=== PATIENT | male | born 2000 | race Caucasian/White ===

== ENCOUNTER 2019-04-13 20:29 | Inpatient (IN) | payer BC ==
[~2019-04-13 20:29] MED LIST: Iopamidol 370 76% 100 ML VIAL ONE; Ketamine 50 MG/ML (10ML VIAL) ONE; Sodium Bicarb 50 MEQ/50 ML Abboject 8.4% SYRINGE ONE
[2019-04-13] MEDS ORDERED: Fentanyl 100 MCG/2 ML VIAL ONE (20:39)
[2019-04-13] MEDS ORDERED: Tranexamic Acid 1,000 MG in Sodium Chloride 0.9% 100 ML IVPB SCH (20:45)
--- NOTE | 2019-04-13 21:01 | RAD ---
Chest one view: HISTORY: Injury from trauma Endotracheal tube in satisfactory location. Left subclavian catheter in place with the tip in the sup erior vena cava. Heart size is normal. No pneumothorax or pleural effusion or other acute process. IMPRESSION: Left subclavian catheter and endotracheal tubes in satisfactory location. No evidence for acute intra thoracic disease.
--- NOTE | 2019-04-13 21:03 | RAD ---
Exam: Pelvis one view: HISTORY: Injury from trauma, fall from bridge Overlying trauma board artifact. The patient is rotated to the right. The right pelvis and right sacr al alar region are less than optimally imaged. No acute fracture or dislocation seen on this somewhat limited study. IMPRESSION: Rotation to the right. No overt acute process.
[2019-04-13 21:04] LABS: INR-International Normal Ratio 1.8; PTT 57.5 SEC (22.9-36.1); Prothrombin Time 20.4 SEC (12.0-14.7)
[2019-04-13 21:12] LABS: Band 15 % (5-11); Eosinophils 1 % (0-10); Hemoglobin 13.1 g/dL (14.0-18.0); Lymphocytes 9 % (28-48); MDiff Complete? YES; Mean Corpuscular HGB CONC 34.4 g/dL (32.0-36.0); Mean Corpuscular Hemoglobin 32.3 pg (25.0-35.0); Monocytes 3 % (0-4); Neutrophil 71 % (31-61); Platelet Count 236 thou/uL (130-400); Platelet Morphology Comment Appears Adequate; RBC Distribution Width 11.1 % (11.5-14.5); Reactive Lymphocytes 1 % (0-10); Red Blood Cell (RBC) Count 4.05 mill/uL (4.00-5.20)
[2019-04-13 21:16] LABS: ALT (SGPT) 37 U/L (8-55); AST (SGOT) 56 U/L (10-45); Albumin 4.4 g/dL (3.5-5.0); Alkaline Phosphatase 71 U/L (Less than 750); Anion Gap 17 mmol/L (10-20); BUN (Urea Nitrogen) 16 mg/dL (8.4-21.0); Bilirubin, Total 0.5 mg/dL (0.2-1.2); Calc. Creatinine Clearance 0 mL/min (70-130); Calcium 8.8 mg/dL (7.8-10.44); Carbon Dioxide 18 mmol/L (22-29); Chloride 104 mmol/L (98-107); Estimated GFR-MDRD 68; Globulin 2.4 g/dL (2.4-3.5); Glucose 181 mg/dL (70-105); Potassium 3.5 mmol/L (3.5-5.1); Protein, Total 6.8 g/dL (6.0-8.3)
[2019-04-13 21:19] LABS: Sodium 135 mmol/L (136-145)
--- NOTE | 2019-04-13 21:31 | CT ---
Exam: Brain CT without IV contrast: HISTORY: There is some soft tissue air noted in the right upper neck. There is injury to the inferior anterior maxilla incompletely seen on this study but will be evaluated on the facial bone CT. Minimal sinus mucosal disease. The mastoids are clear. No focal mass or midline shift. No intra or extra-axial hemo rrhage.. Frontal scalp hematoma changes. IMPRESSION: No significant acute intracranial mass or hemorrhage. Soft tissue air in the right upper neck. Injury to the anterior maxilla incompletely seen on this study.
[2019-04-13] MEDS ORDERED: Propofol 1,000 MG/100 ML VIAL IV ONE (21:34)
[2019-04-13 21:39] LABS: Actual Bicarbonate (HCO3a) 20.2 mEq/L (22-28); Analyzer IN Cardio ER; Base Excess (BEa) -6.1 mEq/L (-2.0 to +3.0); CO2 Tension 43.1 mmHg (35.0-45.0); Calcium, Ionized 1.09 mmol/L (1.12-1.30); Carboxyhemoglobin (COHb) 0.3 gm% (0.0-3.0); Hemoglobin (Hb) 11.6 g/dL (11.4-15.4); O2 Tension (PaO2) 178.7 mmHg (80.0-100.0); Potassium - ABG Lab 3.36 mmol/L (3.70-5.30); pH, Arterial 7.29 (7.35-7.45)
[2019-04-13 21:47] LABS: Acetaminophen Less than 6.0 mcg/mL (10.0-30.0); Alcohol Less than 10 mg/dL (Less than 10); Salicylate Less than 8.0 mg/dL (15.0-30.0)
[2019-04-13 21:48] LABS: ALV-art Gradient 480.425 (0-20); Puncture Site RBA
--- NOTE | 2019-04-13 21:51 | CT ---
CT CERVICAL SPINE WITHOUTCONTRAST: 04/13/19 HISTORY: Level I trauma. Patient jumped from a bridge at approximately a height of 40 feet. COMPARISON: None. FINDINGS: There is no craniocervical dissociation. Lateral masses of C1 and C2 articulate appropriately. Odonto id process is intact. Appropriate articulation of the facets. Straightening of the normal cervical lordosis may be due to patient position, muscle spasm or cervic al collar. Current study does not tailor for ligamentous injury. Cervical spine vertebral body height is maintained. There is no cervical spine fracture. There is pat kyle opacification involving the right lung apex due to pulmonary contusion. Small right sided pneumot horax is noted, evaluation is incomplete. There is air tracking along the right aspect of the base of the neck. Etiology of this air is uncertain but appears to be extrapleural in location. Possible inj ury to the cervical esophagus is raised. Endotracheal and nasogastric tube are identified. There are varying degrees of central canal stenosis and neural foraminal narrowing. There is multifocal hypoattenuation with stranding of the fat along the left neck, incompletely evalu ated. Possibility of a left carotid injury is raised. Further evaluation with CT angiogram of the [facility] is recommended. IMPRESSION: 1. No cervical spine fracture. 2. Right sided pneumothorax. 3. Air in the base of the right neck which is extrapleural and is within the soft tissues. Findi ngs may be secondary to rupture of the esophagus. 4. Abnormal attenuation in the left neck, along the course of the left carotid artery. Carotid i njury is suspected. Results of the study discussed with Dalton Solo MS working with Dr. Wilder 04/13/19 at 9:34 p.m. Code CR POS: PPP
--- NOTE | 2019-04-13 21:56 | CT ---
EXAM: Chest abdomen and pelvic CT scanwith IV contrast: Thoracic spine CT scanwith IV contrast: Lumbar spine CT scanwith IV contrast: HISTORY: Injury from trauma COMPARISON: None FINDINGS: Chest abdomen and pelvis CT: Moderate right-sided pneumothorax and probable tiny left-sided pneumothorax. Scattered alveolar parenchymal changes throughout the right lung primarily centrally and posteriorly evidence for widespread contusion or possibly pneumonia or aspiration. More confluent parenchymal changes in the left lower lobe evidence for extensive left lower lobe contusion. No evidence for pleu ral effusion or pericardial effusion. No mediastinal hematoma. The aorta appears unremarkable NG tube and endotracheal tubes are in satisfactory location. Liver:Heterogeneous attenuation probably from artifact. Gallbladder:Unremarkable Pancreas:Unremarkable Spleen:Heterogeneous attenuation which may be from artifact although I am concerned about the possibi lity of a grade 1 or 2 splenic injury involving the posterior inferior spleen. Kidneys:Unremarkable No intraperitoneal fluid or retroperitoneal hematoma. There is evidence for a sacral fracture primarily at S2 and involving the left sacral alar. IMPRESSION: Moderate size right pneumothorax. Probable very small left pneumothorax. Diffuse alveolar parenchymal changes in the right lung evidence for scattered contusion versus pneumonia or aspiration. Parenchymal changes in the left lower lobe evidence for contusion. Heterogeneous attenuation within t he spleen possibly artifact possibly a grade 1 or grade 2 injury without evidence for perisplenic fluid or capsular hematoma. Evidence for a left sacral alar and S2 sacral fracture. Thoracic spine CT: IMPRESSION: No evidence for fracture, dislocation, or other significant acute process. Lumbar spine CT: Bending type fracture of S2 vertebral body region as well as fractures involving the left sacral alar . Findings were discussed with Dr. Wilder in the emergency room in regards to the head CT as well as t he abdomen and pelvic CT scan at 9:52 PM CODE CR
--- NOTE | 2019-04-13 21:57 | CT ---
CT FACIAL BONES: 04/13/19 HISTORY: Patient jumped from a height of 40 feet. COMPARISON: None. FINDINGS: The visualized brain parenchyma is unremarkable. Bilateral ocular lenses are appropriately located. B oth globes are intact. Retrobulbar fat is preserved. Symmetric attenuation of the optic nerves and oc ular rectus muscles. Adequate aeration of the paranasal sinuses and mastoid air cells. The zygomatic arches are intact. Comminuted fracture involving the mental protuberance of the mandible. There is dislocation of multip le teeth. Fracture lucency extends into the proximal aspect of the left mandible. Additional fractur e lucency is noted in the left ramus of the mandible. There is also posttraumatic impaction and displ acement of multiple maxillary teeth along the midline. There is disruption and loss of congruity of t he maxillary protuberance. There is posttraumatic soft tissue swelling and subcutaneous emphysema young ng the floor of the mouth. Multiple fracture fragments are displaced posterior and slightly inferior to the normal expectation of the mandible. There is extensive subcutaneous emphysema. There is posttr aumatic fluid in the visualized aerodigestive tract. Endotracheal and nasogastric tubes are noted. There is stranding of the fat along the rough aspect of the neck, predominantly on the carotid space. IMPRESSION: Extensive maxillofacial fractures. Posttraumatic change in the floor of the mouth are noted. There is posttraumatic change in the left carotid space. Results of the study discussed with Dalton Solo MS working with Dr. Wilder 04/13/19 at 9:40 p.m. Code CR POS: PPP
[2019-04-13] MEDS ORDERED: Tranexamic Acid 1,000 MG in Sodium Chloride 0.9% 250 ML 250 ML IVPB SCH (22:00)
--- NOTE | 2019-04-13 22:06 | CT ---
CT ANGIOGRAM OF THE RIGHT LE04/13/19 HISTORY: Level I trauma. Fracture. Evaluate for vascular compromise. COMPARISON: None. FINDINGS: There is a comminuted distal femur fracture with multiple fracture fragments. There is intra-articula r extension. There is also evidence of an impacted fracture involving the medial and lateral tibial p lateau. There is associated posttraumatic fat fluid level in the joint space. There is evidence of ed magdalena in the soft tissues. The visualized right distal superficial femoral artery, popliteal artery, and the arterial trifurcati on are patent. IMPRESSION: 1. Extensive posttraumatic changes in the osseous structures as described above. 2. No evidence of vascular injury with respect to the region that has been evaluated. POS: PPP
--- NOTE | 2019-04-13 22:16 | RAD ---
Exam: Right foot 2 views: HISTORY: Injury from trauma Markedly displaced fractures of the first second third and possibly even the fourth proximal metatars als with abnormal alignment including the Lisfranc region, which is poorly evaluated on this 2 view study. IMPRESSION: Displaced fractures involving at least the first second third and possibly fourth proximal metatarsal s with resultant malalignment and deformity.
[2019-04-13 22:18] LABS: Bilirubin Negative (Negative); Blood, Urine Large (Negative); Clarity CLEAR (Clear); Glucose, Urine (Dipstick) Negative (Negative); Leukocyte Negative (Negative); Nitrite Negative (Negative); Protein, Urine (Dipstick) 30 mg/dL (Neg-Trace); Urobilinogen 0.2 mg/dL (0.2-1.0)
--- NOTE | 2019-04-13 22:18 | RAD ---
Exam: Right ankle 3 views: HISTORY: Injury from a fall and trauma Marked fractures through the first second third and possibly fourth proximal metatarsal regions with displacement and malalignment and deformity. The ankle appears intact. IMPRESSION: No evidence for an acute ankle fracture. Fractures and deformity of the mid foot.
--- NOTE | 2019-04-13 22:19 | RAD ---
Left elbow 2 views: HISTORY: Injury from trauma. There is very extensive comminuted fractures with impaction and marked malalignment involving the dis zenaida humerus as well as the olecranon. Marked soft tissue swelling. The radius appears intact. IMPRESSION: Marked displacement and malalignment with associated comminuted fractures of the distal humerus and o lecranon with considerable resultant deformity.
[2019-04-13 22:20] LABS: Bacteria/HPF None Seen HPF (None Seen); Hyaline Casts/LPF 4-6 HYALINE CAST LPF (0-3 Hyaline); Pathc Cast-AUWi Flag 0.68 (0-2.49); Squamous Epithelial 0-3 HPF (0-3)
--- NOTE | 2019-04-13 22:24 | RAD ---
LEFT HUMERUS TWO VIEWS: 04/13/19 HISTORY: Fall. Pain. COMPARISON: None. FINDINGS: Comminuted fracture involving the distal humerus. There is intra-articular extension. IMPRESSION: Distal humerus fracture. POS: PPP
[2019-04-13 22:26] LABS: Amphetamine Not Detected (NotDetected); Barbiturates Screen Not Detected (NotDetected); Benzodiazepine Screen Not Detected (NotDetected); Cocaine Metabolite Screen Not Detected (NotDetected); Medtox Control Line Valid? VALID (VALID); Medtox Reader # READER 1; Methadone Not Detected (NotDetected); Methamphetamine Not Detected (NotDetected); Opiate Screen Not Detected (NotDetected); Oxycodone Screen Not Detected (NotDetected); Phencyclidine (PCP) Not Detected (NotDetected); THC/Cannabinoid Screen Detected (NotDetected); Tricyclic Screen Not Detected (NotDetected)
--- NOTE | 2019-04-13 22:26 | RAD ---
LEFT FOREARM TWO VIEWS: 04/13/19 HISTORY: Fall. Pain. COMPARISON: None. FINDINGS: There is a comminuted fracture involving the distal humerus. Additionally, this fracture likely invol ving the olecranon process. There is associated soft tissue swelling and palpable joint effusion at t he level of the elbow. IMPRESSION: Complex fracture involving the left elbow. Specifically, there is a fracture of the olecranon as well as the distal humerus. There is intra-articular extension with multiple fracture fragments. POS: PPP
[2019-04-13] MEDS ORDERED: Lidocaine 1% w/Epinephrine 1:100K 20 ML VIAL ONE (22:30)
--- NOTE | 2019-04-13 22:31 | RAD ---
LEFT KNEE TWO VIEWS: 04/13/19 HISTORY: Fall. Pain. Trauma. Patient fell from a height of 40 feet. FINDINGS: Joint spaces are preserved. No fracture or malalignment. No joint effusion. IMPRESSION: Unremarkable two views left knee. POS: PPP
--- NOTE | 2019-04-13 22:33 | CT ---
EXAM: CT angiogram of the head including 3-D rendering: HISTORY: COMPARISON: None FINDINGS: There is adequate opacification of the intracranial arteries. Visualized vertebral and basilar arteries: Small caliber right vertebral artery.. Right and left intracranial internal carotid arteries: Unremarkable. Right and left Anterior and posterior cerebral arteries: Unremarkable. Right and left middle cerebral arteries: Unremarkable. No evidence for an M1 segment occlusion. No evidence for intracranial aneurysm. IMPRESSION: No significant major branch occlusion or stenosis. No evidence for intracranial aneurysm. EXAM: CT angiogram of the neck including 3-D rendering: HISTORY: Injury from trauma COMPARISON: None FINDINGS: There is adequate opacification of the extracranial arterial tree. The origins of the right and left carotid and vertebral arteries demonstrate no significant stenosis. Right common, internal, and external carotid arteries:No evidence for significant stenosis or occlusi ve disease. Left common, internal, and external carotid arteries:No significant stenosis or occlusive disease. Right and left vertebral arteries and basilar artery:Very small caliber right vertebral artery throug hout its course. Dominant left vertebral artery Soft tissue neck demonstrates no evidence for significant adenopathy, mass, or abnormal fluid collect ion. IMPRESSION: No significant carotid, vertebral, or basilar artery stenosis or occlusive disease or other significa nt acute process. Generally small caliber right vertebral artery throughout its course. Dominant left vertebral artery. Tiny left-sided pneumothorax. Small to moderate right-sided pneumothorax evidence for pneumomediastin um with some air extending up into the neck. Findings discussed with Dr. Wilder in the emergency room at 10:30 PM CODE CR
--- NOTE | 2019-04-13 22:33 | RAD ---
RIGHT KNEE TWO VIEWS: 04/13/19 HISTORY: Fall from a bridge. COMPARISON: None. FINDINGS: Comminuted fracture involving the distal femur. There is associated joint effusion and soft tissue sw elling. There appears to be irregularity with subtle sclerosis involving the proximal tibial plateau medially and laterally. Possibility of impaction fracture in this region cannot be excluded. IMPRESSION: Posttraumatic changes as described above. POS: PPP
--- NOTE | 2019-04-13 22:34 | RAD ---
THREE VIEWS LEFT ANKLE: 04/13/19 HISTORY: Fall from a bridge. Pain. COMPARISON: None. FINDINGS: Ankle mortise appears to be intact. Joint space is preserved. No fracture. IMPRESSION: Unremarkable left ankle three views. POS: PPP
[2019-04-13] MEDS ORDERED: Lidocaine 1% (PF) 30 ML VIAL ONE (22:40)
[2019-04-13] MEDS ORDERED: Promethazine HCl 25 MG/ML VIAL IM PRN (23:08)
[2019-04-13] MEDS ORDERED: Ondansetron ODT 4 MG TAB PO PRN (23:08)
[2019-04-13] MEDS ORDERED: Ondansetron PF 4 MG/2 ML Vial IVP PRN (23:08)
[2019-04-13] MEDS ORDERED: Dextrose 5% in Water 1,000 ML IV PRN (23:08)
[2019-04-13] MEDS ORDERED: Dextrose 50% Abboject 50 ML SYRINGE SLOW IVP PRN (23:08)
[2019-04-13] MEDS ORDERED: Sodium Chloride 0.9% 1,000 ML IV SCH (23:15)
[2019-04-13] MEDS ORDERED: Ventilator Sedation Protocol 1 EACH FS SCH (23:15)
[2019-04-13] MEDS ORDERED: Fentanyl BOLUS 250 ML IVPB PRN (23:22)
[2019-04-13] MEDS ORDERED: DISCONTINUE PREVIOUS NARCOTIC PAIN MEDICATIONS AND BENZODIAZEPINES FS SCH (23:22)
[2019-04-13] MEDS ORDERED: Propofol BOLUS 1,000 MG/100 ML VIAL IV PRN (23:22)
[2019-04-13] MEDS ORDERED: Morphine 2 MG/ML SYRINGE SLOW IVP PRN (23:22)
[2019-04-14] LABS: Lactic Acid 2.5 mmol/L (0.5-2.2)
[2019-04-14] MEDS ORDERED: Sodium Bicarbonate 150 MEQ in Dextrose 5% in Water 1,000 ML IV SCH ×2 (00:30)
[2019-04-14] MEDS ORDERED: Calcium Chloride 1 GM/10 ML Abboject SYRINGE IVP SCH ×2 (00:30→09:30)
--- NOTE | 2019-04-14 00:35 | HP ---
HISTORY OF PRESENT ILLNESS: A 18-year-old man apparently with a history of mental illness. The patient jumped off a bridge landing 30 feet to hard ground. He may or may not have suffered loss of consciousness. He was found by responded EMS, unable to ambulate. Initially, he was noted with a Edward Coma Scale of E4, V4, M6. He soon became combative. He had extensive amount of external harmon of trauma about his face, upper and lower extremities. He had significant amount of blood about his oropharyngeal area. He had a complex laceration of the chin with unstable jaw. Due to being agitated and combative, the patient had received ketamine for a total of 400 mg as well as midazolam 2 mg intravenously. He was placed on a spine board and cervical spine was immobilized in a C-collar. The patient was transported via ground EMS to [facility]. He arrives at this time with a Edward Coma Scale of E4, V2, M5. Due to significant harmon of trauma about his face and oropharynx, decision was made to electively intubate the patient to secure his airway. He had a large amount of blood in his mouth with active bleeding from the complex lower lip and chin lacerations. PAST MEDICAL AND SURGICAL HISTORY: Unknown. SOCIAL HISTORY: Unknown. CURRENT MEDICATION AND ALLERGIES: Unknown. FAMILY HISTORY: Also unknown. REVIEW OF SYSTEMS: Could not be obtained due to the patient's mental status upon presentation, having been sedated. PHYSICAL EXAMINATION: General: This reveals a 18-year-old normally developed man, who is sedated with extensive amount of external harmon of trauma. He otherwise appeared to be in no acute distress. VITAL SIGNS: Initial vital signs included blood pressure 112/80, pulse 131, respiratory rate is 26, temperature 96 degrees Fahrenheit, oxygen saturation 84% being bagged. HEENT: Pupils are equally round and reactive to light bilaterally at 3 mm. There is a 5 cm complex laceration of the chin and lower lip, which is through and through. Multiple dental fractures of the upper and lower dentitions noted. Active bleeding of the lower lip laceration was temporarily controlled using interrupted sutures of 3-0 silk. The cervical spine, which was immobilized in a C-collar, was maintained in neutral position during my examination. On palpation, there were no bony step-offs present. CHEST: Chest wall stable. No gross deformities or step-offs present. HEART: Reveals regular rate with sinus tachycardia. No murmurs or gallops auscultated. LUNGS: Reveal bibasilar coarse rhonchi. Breathing regular and nonlabored. ABDOMEN: Soft, nontender, nondistended. EXTREMITIES: Reveals markedly deformed left elbow as well as right knee and right foot. Significant soft tissue swelling noted in these areas. Otherwise, there is 2+ bilateral radial pulses present. Although, the right pedal pulse was not palpable by Doppler, posterior tibial and dorsalis pedis pulses were present. Left dorsalis pedis and posterior tibial pulses were palpable. When patient was log-rolled, the thoracic and lumbar spine were palpated and free of any abnormalities or bony step-offs. NEUROLOGIC: The patient otherwise did not have any focal neurologic deficits prior to intubation. LABORATORY FINDINGS: Today include a CBC with 22,000 white blood cells, hemoglobin and hematocrit 13.1 and 38.0 respectively. Platelet count is 236,000. PTT and INR are elevated at 57.5 seconds and 1.8 respectively. Arterial blood gas; pH 7.29, pCO2 43, PO2 178.7, bicarb is 20.2, base excess is -6.1. Ionized calcium is 1.09. Metabolic profile includes sodium 135, potassium 3.5, chloride is 104, bicarb is 18, BUN is 16, creatinine is 1.35, glucose is 181, magnesium is 2.3, total bilirubin is 0.5, AST and ALT are 56 and 37 respectively. Plasma alcohol level is less than 10. Urine toxicology screen was ordered and results pending at time of dictation. IMAGING DATA: I have reviewed all radiographic studies including a post-intubation chest x-ray, which revealed adequate ET tube placement. Right pulmonary contusion is noted. There was no pneumothorax present on the chest x-ray. X-ray of the pelvis revealed no fractures or dislocation. CT scan of the brain is unremarkable for any acute intracranial pathology. CT scan of the face remarkable for extensive comminuted fractures of the maxilla and mandible with multiple dental fractures. CT scan of the chest, abdomen and pelvis is remarkable for bilateral pulmonary contusions, moderate right-sided pneumothorax and small left apical pneumothorax. CT scan of the cervical, thoracic and lumbar spine revealed no fractures or dislocation. X-ray of the right lower extremity was significant for comminuted fractures of the right femoral condyle as well as comminuted fractures of the midfoot. CT angiography of the right leg is unremarkable for any vascular injuries. X-ray of the left elbow and forearm are remarkable for fracture dislocation of the left elbow. CT scan of the right knee is remarkable for the comminuted fractures of the right femoral condyle as well as impaction fracture of the right tibial plateau. IMPRESSIONS: 1. Status post fall from a bridge 30 feet. 2. Apparent suicide attempt. 3. Acute hypoxemic and hypercarbic posttraumatic respiratory failure. 4. Complex chin and lower lip lacerations with active hemorrhage. 5. Multiple dental fractures. 6. Comminuted open mandibular fractures. 7. Comminuted maxillary bone fracture. 8. Acute blood loss anemia. 9. Comminuted left elbow fracture dislocation. 10. Closed comminuted right femoral condyle fracture. 11. Comminuted impaction fracture of the right tibial plateau. 12. Bilateral pneumothoraces, right greater than left. 13. Acute metabolic acidosis. 14. Acute hypocalcemia. 15. 5 cm complex through and through chin and lower lip lacerations. PLAN: 1. Orthopedic surgical consultation regarding multiple traumatic fractures. 2. OMFS consultation regarding the multiple facial fractures. 3. The patient will be admitted to intensive care unit. We will continue with resuscitation. 4. We will continue with full mechanical ventilator support until the patient is hemodynamically stable. 5. We will initiate prophylaxis against gastritis and VTE. Above findings and plan will be communicated to the patient's family upon arrival. Total critical care time is 95 minutes. Job ID: [id number]
[2019-04-14] MEDS ORDERED: Piperacillin/Tazobactam 3.375 GM in Sodium Chloride 0.9% 100 ML IVPB SCH (00:45)
--- NOTE | 2019-04-14 04:08 | OP ---
DATE OF PROCEDURE: 04/13/2019 PREOPERATIVE DIAGNOSES: 1. Status post fall from a bridge and apparent suicide attempt. 2. Upper and lower extremity fractures. 3. Multiple complex facial fractures. 4. Acute blood loss anemia,. 5. Acute posttraumatic respiratory failure. POSTOPERATIVE DIAGNOSES: 1. Status post fall from a bridge and apparent suicide attempt. 2. Upper and lower extremity fractures. 3. Multiple complex facial fractures. 4. Acute blood loss anemia,. 5. Acute posttraumatic respiratory failure. PROCEDURE PERFORMED: Placement of left subclavian triple-lumen central venous catheter. INDICATIONS FOR PROCEDURE: A 18-year-old man who jumped from a bridge, landing approximately 30 feet, sustaining multiple traumatic injuries. The patient arrived in extremis requiring active resuscitation. Central venous catheter is warranted to complement the two peripheral IV accesses required for resuscitation. DESCRIPTION OF PROCEDURE: The patient was placed in supine position following intubation and placement on full mechanical ventilator support. Left chest wall was sterilely prepped and draped in usual fashion. Skin was anesthetized with 1% lidocaine below the left clavicle. Left subclavian vein was cannulated with an 18-gauge introducer needle returning dark venous blood. Guidewire was passed through the needle and advanced through the left subclavian vein without resistance. The needle was withdrawn over the guidewire. A stab incision was made adjacent to the guidewire using 11 scalpel. Dilator was passed over the guidewire, dilating the subcutaneous tissues. Dilator was removed and a triple-lumen central venous catheter was advanced over the guidewire and placed in left subclavian vein without resistance and stopping at the 18 cm silvia. Guidewire was removed. Dark venous blood was aspirated from all 3 ports, which were individually flushed with saline. Catheter was secured to anterior chest wall using 3-0 silk suture at 2 points. Biopatch and sterile dressings were applied. The patient tolerated the procedure without any apparent complication. Chest x-ray was obtained confirming proper placement of the central venous access with no pneumothorax present. Job ID: [id number]
[2019-04-14 05:24] LABS: INR-International Normal Ratio 1.5; PTT 34.9 SEC (22.9-36.1); Prothrombin Time 17.6 SEC (12.0-14.7)
[2019-04-14 05:34] LABS: Lactic Acid 1.4 mmol/L (0.5-2.2)
[2019-04-14 05:40] LABS: Band 13 % (5-11); Hemoglobin 8.5 g/dL (14.0-18.0); Lymphocytes 5 % (28-48); MDiff Complete? YES; Mean Corpuscular HGB CONC 34.7 g/dL (32.0-36.0); Mean Corpuscular Hemoglobin 32.1 pg (25.0-35.0); Mean Corpuscular Volume 92.7 fL (78.0-98.0); Mean Platelet Volume 8.6 fL (7.4-10.4); Monocytes 2 % (0-4); Neutrophil 80 % (31-61); Platelet Count 129 thou/uL (130-400); Platelet Morphology Comment Appears Decreased; RBC Distribution Width 11.6 % (11.5-14.5); RBC Morphology Normal; Red Blood Cell (RBC) Count 2.66 mill/uL (4.00-5.20)
[2019-04-14 05:47] LABS: ALT (SGPT) 36 U/L (8-55); AST (SGOT) 58 U/L (10-45); Albumin 3.4 g/dL (3.5-5.0); Alkaline Phosphatase 48 U/L (Less than 750); Anion Gap 11 mmol/L (10-20); BUN (Urea Nitrogen) 15 mg/dL (8.4-21.0); Bilirubin, Total 1.1 mg/dL (0.2-1.2); CK (CPK) 1311 U/L (30-200); Calc. Creatinine Clearance 106 mL/min (70-130); Calcium 9.1 mg/dL (7.8-10.44); Carbon Dioxide 28 mmol/L (22-29); Chloride 105 mmol/L (98-107); Estimated GFR-MDRD Greater than 90; Globulin 1.7 g/dL (2.4-3.5); Glucose 139 mg/dL (70-105); Potassium 4.3 mmol/L (3.5-5.1); Protein, Total 5.1 g/dL (6.0-8.3); Sodium 140 mmol/L (136-145)
[2019-04-14] MEDS: Propofol 1,000 MG/100 ML VIAL IV PRN (07:06)
[2019-04-14] MEDS: Piperacillin/Tazobactam 3.375 GM in Sodium Chloride 0.9% 100 ML IVPB SCH ×3 (07:06→17:49)
[2019-04-14] MEDS ORDERED: Vecuronium 10 MG VIAL IV SCH (07:15)
[2019-04-14] MEDS ORDERED: Lidocaine 1% w/Epinephrine 1:100K 20 ML VIAL NERVE BLCK SCH (07:15)
[2019-04-14 07:20] LABS: ALV-art Gradient 182.475 (0-20); Analyzer IN Cardio OR; Base Excess (BEa) 2.4 mEq/L (-2.0 to +3.0); CO2 Tension 30.9 mmHg (35.0-45.0); Calcium, Ionized 1.09 mmol/L (1.12-1.30); Carboxyhemoglobin (COHb) 0.3 gm% (0.0-3.0); Hemoglobin (Hb) 8.4 g/dL (11.4-15.4); O2 Tension (PaO2) 206.7 mmHg (80.0-100.0); Puncture Site RRA; pH, Arterial 7.53 (7.35-7.45)
[2019-04-14] MEDS: Famotidine 20 MG TAB PO SCH ×2 (08:34→20:56)
[2019-04-14] MEDS: Famotidine/PF 20 mg/2ml Vial SLOW IVP SCH ×2 (08:34→20:56)
[2019-04-14] MEDS ORDERED: Sterile Water 10 ML ONE (09:27)
[2019-04-14] MEDS ORDERED: Albumin 5% 500 ML ONE ×2 (09:29→13:46)
[2019-04-14] MEDS ORDERED: Albumin 25% 25 GM/100 ML BOT IVPB ONE (09:29)
[2019-04-14] MEDS: Fentanyl 100 MCG/2 ML VIAL SLOW IVP SCH ×2 (10:00→12:50)
[2019-04-14] MEDS: Midazolam HCl 2 mg/2 ml Vial IVP SCH ×3 (10:00→13:05)
--- NOTE | 2019-04-14 10:27 | RAD ---
PORTABLE SUPINE CHEST: Date: 04/14/19 HISTORY: Chest tube placement. COMPARISON: Prior CT examination done yesterday. FINDINGS: Right-sided chest tube has been placed. I do not visualize any right pneumothorax on this film. A lef t subclavian line is seen with catheter tip over the superior vena cava. Endotracheal and NG tubes ap pear in satisfactory position. There is increasing density in the retrocardiac region which could represent contusion, infiltrate, o r atelectasis. There is slight lucency along the left heart border. On this supine film, this would r aise the possibility of pneumothorax. Continued follow-up chest films would be recommended for assess ment of this. IMPRESSION: 1. Right chest tube placement. No signs of pneumothorax. 2. Worsening consolidation in the retrocardiac region. 3. There is suggestion of some free air along the lateral edge of the left hemidiaphragm. Reviewing the previous CT showed no signs of intra-abdominal free air. The possibility of occult bowel injury s hould be considered and consideration for repeat CT of the abdomen and pelvis is suggested if clinica lly indicated. Findings were discussed with Wagner Nevarez at the time of this dictation. CODE CR.
--- NOTE | 2019-04-14 10:29 | RAD ---
LEFT FOOT 3 VIEWS: Date: 04/14/19 HISTORY: Trauma to foot. FINDINGS: There are fractures at the junction of the metatarsal head and neck of the 4th and 5th metatarsals, a nd also deformity at the 2nd and 3rd metatarsal head/neck region, although the fracture line is not d efinitely evident. Changes also would suggest there are fractures, probably acute, at this level. IMPRESSION: 2nd through 5th metatarsal head/neck fractures as described above. POS: JESSICA
[2019-04-14] MEDS: Sodium Chloride 0.9% 1,000 ML IV SCH ×2 (10:36→17:50)
[2019-04-14] MEDS ORDERED: Sodium Chloride 0.9% 500 ML IVPB SCH (11:00)
[2019-04-14] MEDS: fentaNYL Citrate/PF 2,000 MCG in Sodium Chloride 0.9% 60 ML IV SCH (11:44)
[2019-04-14] MEDS ORDERED: Albumin 25% 25 GM/100 ML BOT IVPB SCH (14:00)
--- NOTE | 2019-04-14 16:30 | CT ---
Exam: Left foot CT scan without IV contrast: HISTORY: Injury Minimally displaced fractures involving the second third fourth and fifth distal metatarsals are note d. In addition there is a slightly comminuted fracture involving the cuboid as well as the navicular bone. There are also nondisplaced fractures involving the base of the fourth and third meta tarsals. IMPRESSION: Multiple fractures involving the foot including second third fourth and fifth metatarsals, the cuboid bone, and the navicular bone.
--- NOTE | 2019-04-14 16:40 | CT ---
Exam: Right lower extremity CT without IV contrast: HISTORY: Right foot injury from trauma Multi planar imaging of the right foot is performed. FINDINGS: Very severely comminuted displaced fractures involving the proximal first metatarsal with extensive d isplacement of the numerous fragments. Minimally comminuted displaced fracture of the mid second metatarsal. Comminuted displaced fracture of the proximal third metatarsal. Tiny chip type fracture o ff the base of the fourth metatarsal. Tiny chip type fracture off the cuboid bone. The Lisfranc joint appears to be adequate alignment. IMPRESSION: Multiple fractures as above including the first second third and fourth metatarsals and a small chip fracture of the cuboid bone.
--- NOTE | 2019-04-14 16:46 | CT ---
Left upper extremity CT scan without IV contrast: HISTORY: Trauma, elbow fracture FINDINGS: There is at least a moderate size left-sided pneumothorax which is considerably increased in size fro m the initial CT study of 04/13. Very severely comminuted fracture of the distal humerus including the distal humeral metaphysis as we ll as the medial and lateral condyle regions and intercondylar regions with extensive intra-articular fracture extension and considerable foreshortening and malalignment and resultant def ormity. There is also a very severely comminuted fracture of the olecranon which is markedly displaced with extensive displaced olecranon bone fragments. The radius appears intact. The humeral d iaphysis and ulnar diaphyseal regions appear intact. IMPRESSION: Very extensively fractured distal humerus with considerable fragmentation foreshortening and malalign ment. Extensively comminuted olecranon fracture with marked displacement and malalignment of the numerous f racture fragments.
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
[2019-04-14] MEDS: Lorazepam 2 MG/ML VIAL SLOW IVP PRN (21:42)
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
[2019-04-15] MEDS: Sodium Chloride 0.9% 1,000 ML IV SCH ×5 (00:31→23:33)
[2019-04-15] MEDS: Piperacillin/Tazobactam 3.375 GM in Sodium Chloride 0.9% 100 ML IVPB SCH ×4 (00:31→20:59)
[2019-04-15] MEDS: Lorazepam 2 MG/ML VIAL SLOW IVP PRN ×2 (03:07→11:04)
[2019-04-15] MEDS: fentaNYL Citrate/PF 2,000 MCG in Sodium Chloride 0.9% 60 ML IV SCH ×2 (03:10→20:58)
[2019-04-15 08:54] LABS: #Eosinphils 0.1 thou/uL (0.0-0.7); #Lymphocytes 0.9 thou/uL (1.20-3.40); #Monocytes 0.7 thou/uL (0.11-0.59); #Neutrophils 5.7 thou/uL (1.40-6.50); %Basophils 0.4 % (0.0-1.0); %Eosinophils 1.5 % (0.0-10.0); %Lymphocytes 12.3 % (28.0-48.0); %Monocytes 8.7 % (0.0-4.0); %Neutrophils 77.1 % (31.0-61.0)
[2019-04-15 09:06] LABS: Hemoglobin 5.5 g/dL (14.0-18.0); Mean Corpuscular HGB CONC 34.7 g/dL (32.0-36.0); Mean Corpuscular Hemoglobin 32.9 pg (25.0-35.0); Mean Corpuscular Volume 94.8 fL (78.0-98.0); Platelet Count 56 thou/uL (130-400); RBC Distribution Width 11.7 % (11.5-14.5); Red Blood Cell (RBC) Count 1.68 mill/uL (4.00-5.20); White Blood Cell (WBC) Count 7.4 thou/uL (4.8-10.8)
--- NOTE | 2019-04-15 09:07 | RAD ---
EXAM: XR Chest 1 View Portable PROVIDED CLINICAL HISTORY: Right pneumothorax. COMPARISON: 04/14/2019 FINDINGS: Endotracheal tube, left subclavian central venous catheter, and right-sided thoracostomy tube are aga in noted in place and unchanged in position. The nasogastric tube is been removed. There are small biapical pneumothoraces present which appear to occupy just less than 50% of the volu me of each hemithorax. The pneumothorax on the right was not seen on prior exam, but the pneumothorax on the left was present at the left lung base is now noted to be at the left lung apex a nd is not definitely visualized at the left lung base on the current exam. No consolidation is seen. There is no pleural effusion identified. There is a small amount of mediastinal gas is again seen. The cardiac silhouette and pulmonary vasculature are within normal limits. IMPRESSION: 1. Small biapical pneumothoraces as well as pneumomediastinum. 2. Right-sided thoracostomy tube is stable in position. 3. Endotracheal tube and left subclavian central venous catheters remain in place. 4. Above findings discussed with Dr. Alvarado on 04/15/2019 at 0857 hours.
[2019-04-15 09:10] LABS: Anion Gap 8 mmol/L (10-20); BUN (Urea Nitrogen) 14 mg/dL (8.4-21.0); Calc. Creatinine Clearance 130 mL/min (70-130); Calcium 8.2 mg/dL (7.8-10.44); Carbon Dioxide 26 mmol/L (22-29); Chloride 110 mmol/L (98-107); Estimated GFR-MDRD Greater than 90; Glucose 92 mg/dL (70-105); Magnesium 1.7 mg/dL (1.7-2.2); Phosphorus 2.4 mg/dL (2.3-4.7); Potassium 3.9 mmol/L (3.5-5.1); Sodium 140 mmol/L (136-145)
[2019-04-15] MEDS: Famotidine 20 MG TAB PO SCH (09:15)
[2019-04-15] MEDS: Famotidine/PF 20 mg/2ml Vial SLOW IVP SCH ×2 (09:17→20:59)
[2019-04-15 09:18] LABS: Platelet Morphology Comment Appears Decreased; Polychromasia SLIGHT = 2-3 cells (100X) (0-2/hpf)
[2019-04-15 09:31] LABS: ALV-art Gradient 37.075 (0-20); Actual Bicarbonate (HCO3a) 26.1 mEq/L (22-28); Base Excess (BEa) 0.4 mEq/L (-2.0 to +3.0); CO2 Tension 48.5 mmHg (35.0-45.0); Calcium, Ionized 1.14 mmol/L (1.12-1.30); Carboxyhemoglobin (COHb) 2.3 gm% (0.0-3.0); Hemoglobin (Hb) 5.6 g/dL (11.4-15.4); O2 Tension (PaO2) 116.2 mmHg (80.0-100.0); Potassium - ABG Lab 3.78 mmol/L (3.70-5.30); Puncture Site RRA; pH, Arterial 7.35 (7.35-7.45)
[2019-04-15 12:05] LABS: INR-International Normal Ratio 1.7; PTT 38.4 SEC (22.9-36.1); Prothrombin Time 19.5 SEC (12.0-14.7)
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
[2019-04-15 13:12] LABS: Hemoglobin 7.4 g/dL (14.0-18.0); Platelet Count 59 thou/uL (130-400)
[2019-04-15] MEDS ORDERED: Midazolam HCl 2 mg/2 ml Vial ONE (13:19)
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
[2019-04-15] MEDS ORDERED: Fentanyl 100 MCG/2 ML VIAL ONE ×4 (14:15→20:05)
[2019-04-15] MEDS ORDERED: PHENYLEPHRINE-NS 100 MCG/ML 10 ML SYRINGE ONE (16:24)
[2019-04-15] MEDS ORDERED: Ondansetron PF 4 MG/2 ML Vial ONE (16:24)
[2019-04-15] MEDS ORDERED: Dexamethasone 20 MG/5 ML VIAL ONE (16:24)
[2019-04-15] MEDS ORDERED: Rocuronium Bromide 10 MG/ML (10ML VIAL) ONE (16:24)
[2019-04-15] MEDS ORDERED: Lidocaine 1% w/Epinephrine 1:100K 20 ML VIAL ONE (16:54)
[2019-04-15] MEDS ORDERED: Chlorhexidine Gluconate 15 ML UDCUP SSP ONE ×2 (16:54→19:49)
[2019-04-15 17:06] LABS: #Eosinphils 0.1 thou/uL (0.0-0.7); #Lymphocytes 0.4 thou/uL (1.20-3.40); #Monocytes 0.4 thou/uL (0.11-0.59); #Neutrophils 7.2 thou/uL (1.40-6.50); %Basophils 0.2 % (0.0-1.0); %Eosinophils 0.8 % (0.0-10.0); %Lymphocytes 4.9 % (28.0-48.0); %Monocytes 4.9 % (0.0-4.0); %Neutrophils 89.2 % (31.0-61.0); Hemoglobin 7.2 g/dL (14.0-18.0); Mean Corpuscular HGB CONC 34.4 g/dL (32.0-36.0); Mean Corpuscular Hemoglobin 31.8 pg (25.0-35.0); Mean Corpuscular Volume 92.6 fL (78.0-98.0); Mean Platelet Volume 8.5 fL (7.4-10.4); Platelet Count 86 thou/uL (130-400); RBC Distribution Width 12.5 % (11.5-14.5); Red Blood Cell (RBC) Count 2.27 mill/uL (4.00-5.20); White Blood Cell (WBC) Count 8.1 thou/uL (4.8-10.8)
[2019-04-15] MEDS ORDERED: Hydrocortisone 1% Cream 30 GM TUBE ONE (17:09)
--- NOTE | 2019-04-15 17:40 | RAD ---
EXAM: 2 views of the right femur HISTORY: Leg pain COMPARISON: 04/13/2019 FINDINGS: Limited intraoperative fluoroscopic views shows hardware in the distal femur spanning the d istal femur fracture. No perihardware lucency is seen. IMPRESSION: Status post ORIF of right distal femur fracture without evidence of complication.
[2019-04-15] MEDS ORDERED: Bacitracin Zinc Ointment 30 gm TUBE ONE (19:35)
--- NOTE | 2019-04-15 20:48 | RAD ---
EXAM: Single view of the chest HISTORY: Pneumothorax status post chest tube placement. COMPARISON: 04/15/2019 FINDINGS: Single view of the chest shows a normal sized cardiomediastinal silhouette. The lines and tubes are unchanged in position. There is a very small right apical pneumothorax. There is no evidence of consolidation, mass, or pleural effusion. The bones are unremarkable. IMPRESSION: Stable right apical pneumothorax.
--- NOTE | 2019-04-15 21:20 | RAD ---
EXAM: 3 views of the right foot HISTORY: ORIF of right foot COMPARISON: 04/13/2019 FINDINGS: 3 limited intraoperative fluoroscopic views of the right foot shows the patient is status p ost plate and screw fixation of the fractures of the first and second metatarsals. A K wire is seen extending into the tarsal bones. There appears to be a fracture of the third metatarsal which is not spanned by hardware. IMPRESSION: Postsurgical changes without evidence of complication.
[2019-04-15 22:11] LABS: #Lymphocytes 0.5 thou/uL (1.20-3.40); #Monocytes 0.6 thou/uL (0.11-0.59); #Neutrophils 7.8 thou/uL (1.40-6.50); %Basophils 0.2 % (0.0-1.0); %Eosinophils 0.2 % (0.0-10.0); %Lymphocytes 5.3 % (28.0-48.0); %Neutrophils 87.3 % (31.0-61.0); Hemoglobin 7.6 g/dL (14.0-18.0); Mean Corpuscular HGB CONC 33.6 g/dL (32.0-36.0); Mean Corpuscular Hemoglobin 31.1 pg (25.0-35.0); Mean Corpuscular Volume 92.4 fL (78.0-98.0); Mean Platelet Volume 8.5 fL (7.4-10.4); Platelet Count 120 thou/uL (130-400); RBC Distribution Width 12.4 % (11.5-14.5); Red Blood Cell (RBC) Count 2.45 mill/uL (4.00-5.20); White Blood Cell (WBC) Count 8.9 thou/uL (4.8-10.8)
[2019-04-15] MEDS: CEFAZOLIN 2 GM in Premix Bag 1 BAG IVPB SCH (23:23)
--- NOTE | 2019-04-16 00:33 | OP ---
DATE OF PROCEDURE: 04/15/2019 PROCEDURES PERFORMED: 1. Open reduction and internal fixation of right first metatarsal fracture. 2. Open reduction and internal fixation of right second metatarsal fracture. 3. Reduction of first tarsometatarsal dislocation with pinning. 4. Closed reduction of third metatarsal fracture. ANESTHESIA: General. ESTIMATED BLOOD LOSS: Regarding the foot surgery is 150 mL. ANSWERING SERVICE AGENT: Shaka Abernathy MD IMPLANTS: Synthes foot plates were used, 2.7 mm plate was used on the first metatarsal and a 2.0 plate was used on the second metatarsal as well as a 0.062 K-wire. INDICATIONS: Mr. Casey is a 18-year-old male, who jumped from a bridge in a suicide attempt. He had multiple fractures. He was taken to the operating room for his distal femur fracture, as well as his right foot today. He has an operative note for the distal femur fracture, separate dictation. Goal of surgery is to restore anatomic alignment of the bony injuries, promote healing and prevent complications of prolonged bedrest. DESCRIPTION OF PROCEDURE: Mr. Casey was identified in the preoperative holding area. His correct extremity was marked. He was carried to the operating room. He was positioned supine. General anesthesia was induced. A multidisciplinary time-out was performed. The right lower extremity was prepped and draped in sterile fashion. After we completed fixation of the distal femur, we proceeded to the foot. The patient's foot was evaluated using intraoperative x-ray. At this point, we made a dorsal incision over the foot. We dissected down through the subcutaneous tissues to the fascia, which was opened. We exposed the underlying second metatarsal fracture at the midshaft. This was pulled distally. We reduced the fracture back into its anatomic position. We then placed a plate dorsally. We placed four screws in the bone. At this point, we took x-ray images confirming plate placement and alignment. This was appropriate. We then moved to the first metatarsal. We pulled traction again. We reduced the bone. The cuneiform and metatarsal joint were unstable. We reduced this and pinned this with a K-wire, guiding this with intraoperative x-ray. Next, we placed a T-plate along the dorsal aspect of the first metatarsal. Screws were placed proximally and distally. This rigidly fixed the bone. Next, we reduced the third metatarsal using direct manipulation, but fixation was not applied. It was stable. We took final x-ray images. We thoroughly irrigated with copious lavage. At this point, we closed the subcutaneous tissue of the foot and used nylon for the skin. A sterile dressing and a splint were placed. The patient was taken to the recovery room in good condition without complication. Job ID: [id number]
[2019-04-16] MEDS: Piperacillin/Tazobactam 3.375 GM in Sodium Chloride 0.9% 100 ML IVPB SCH ×5 (00:57→23:04)
[2019-04-16] MEDS: Acetaminophen 1,000 MG in Premix Bag 1 BAG IVPB PRN ×2 (01:36→09:24)
--- NOTE | 2019-04-16 02:07 | OP ---
DATE OF PROCEDURE: 04/15/2019 HIGH SCHOOL LEARNING SUPPORT TEACHER SURGEON: Darrius Trinidad DDS, MD PREOPERATIVE DIAGNOSES: 1. Left mandibular angle fracture, closed. 2. Mandibular symphysis fracture, open, comminuted, and complex. 3. Dentoalveolar fracture, 8, 9, 21, fractured teeth 5, 13, 6 cm lip and chin laceration, complex. POSTOPERATIVE DIAGNOSES: 1. Left mandibular angle fracture, closed. 2. Mandibular symphysis fracture, open, comminuted and complex. 3. Dentoalveolar fracture, avulsed teeth 8 and 9, fractured teeth 5 and 13, and 6 cm lip and chin laceration. PROCEDURES PERFORMED: 1. I and D of dentoalveolar structures 8 and 9 area. 2. Closure of 6 cm of lower lip and chin lacerations. 3. Closed reduction of bilateral mandibular fractures with manipulation and placement of maxillomandibular fixation. 4. Placement of external fixator to the mandible. COMPLICATIONS: None. SPECIMENS: None. DRAINS: None. ESTIMATED BLOOD LOSS: 10 mL. ANESTHESIA: General endotracheal anesthesia. BRIEF PATIENT HISTORY AND PROCEDURE IN DETAIL: This is a 18-year-old male status post jump from overpass, suffering the above noted injuries. The patient was prepped and draped in sterile fashion. A throat pack was placed. Area of the anterior maxilla, and 8 and 9 area protuberant bone were debrided and the laceration of the gingiva over this bone was closed with 4-0 chromic after curettage and irrigation of the anterior maxilla on 8 and 9 area. Arch bars and wires were placed in the maxilla and mandible from the second molar to second molar with 24-gauge wire. The patient was placed in maxillomandibular fixation with fish loops. An external fixator was placed with two 14 mm pins on the right, as well as two 14 mm pins on the left and adaptation of the fixator. The patient was then released from IMF, occlusion checked and was good. Closure of complex lower lip laceration and chin laceration, 3 cm for the lower lip and 3 cm for the chin were closed. The laceration went through and through the lower lip. These were irrigated thoroughly and debrided prior to closure. Lower chin laceration was linear and approximately 3 cm with skin closure done. This was accomplished with 5-0 Prolene. The patient was given 10 mL of 1% lidocaine 1:100,000 epinephrine prior to the procedure. After the throat pack was removed and oropharynx and OG tube placed and removed after suctioning the stomach, the maxillomandibular fixation was then placed. The patient tolerated the procedure well. Job ID: [id number]
--- NOTE | 2019-04-16 02:57 | PRG ---
DATE OF SERVICE: 04/16/2019 This is Wagner Nevarez PA-C dictating a report for Isaac Alvarado DO. SUBJECTIVE: The patient remains in the critical care unit. He is hospital day 3, status post fall from approximately 30 feet in which he sustained multiple traumatic injuries to include a complex facial fracture, upper and lower extremity injuries, rib fracture and bilateral pneumothorax, right greater than left, necessitating a chest tube to be placed on the right. The patient has been on full mechanical ventilatory support. Yesterday, he underwent tracheostomy tube and PEG tube placement. He did well overnight, though it was noted this morning that he had dropped his hemoglobin to 5.5 and was given 1 unit of PRBCs this morning and had 2 units ready for his surgical procedure. OBJECTIVE: VITAL SIGNS: Temperature 100.8, heart rate 117, blood pressure 126/47, respirations 14, oxygen saturations 100%. GENERAL: The patient is resting comfortably in bed. He denies abdominal pain even with deep palpation. His Edward Coma Scale again remains at 11T. HEENT: Unchanged. There is no active bleeding from his lacerations. NECK: Trach tube appears to be functioning well. This is clean, dry, and intact. LUNGS: Scant scattered rhonchi bilaterally. HEART: Tachycardic with regular rhythm. ABDOMEN: Soft, flat, nontender with hypoactive bowel sounds. EXTREMITIES: Neurovascularly intact x4. Splints are clean, dry, and intact. LABORATORY FINDINGS: White blood cell count 7.4, hemoglobin 5.5, hematocrit 16, platelets 56. Sodium 140, potassium 3.9, chloride 110, CO2 of 26, BUN 14, creatinine 0.83, glucose 93, magnesium 1.7, and phosphorus 2.4. RADIOGRAPH: This morning, AP chest shows small biapical pneumothoraces as well as mediastinum. As the right chest tube is in stable physician, endotracheal and subclavian central venous catheter remains in place. ASSESSMENT: 1. Status post fall from approximately 30 feet. 2. Complex facial fracture. 3. Multiple upper and lower extremity fractures. 4. Acute posttraumatic respiratory failure. 5. Acute blood loss anemia. PLAN: Plan will be to continue full ventilatory support. Transfuse 1 unit of PRBCs with 2 units on standby. The patient will be able to go to the operating room today with Orthopedics followed by oral maxillofacial surgery. Postoperatively, we will repeat his hemoglobin and hematocrit, and repeat chest x-ray. Otherwise, we will continue supportive care and start chemical VT prophylaxis at the appropriate time and possibly start tube feeds tomorrow too. The patient was evaluated by Dr. Alvarado this morning during rounds. Job ID: [id number]
[2019-04-16 04:27] LABS: #Lymphocytes 0.8 thou/uL (1.20-3.40); #Monocytes 0.9 thou/uL (0.11-0.59); #Neutrophils 7.9 thou/uL (1.40-6.50); %Basophils 0.1 % (0.0-1.0); %Eosinophils 0.3 % (0.0-10.0); %Monocytes 9.2 % (0.0-4.0); %Neutrophils 82.5 % (31.0-61.0); Hemoglobin 7.1 g/dL (14.0-18.0); Mean Corpuscular HGB CONC 34.4 g/dL (32.0-36.0); Mean Platelet Volume 8.7 fL (7.4-10.4); Platelet Count 132 thou/uL (130-400); RBC Distribution Width 12.5 % (11.5-14.5); Red Blood Cell (RBC) Count 2.22 mill/uL (4.00-5.20); White Blood Cell (WBC) Count 9.6 thou/uL (4.8-10.8)
[2019-04-16 04:47] LABS: Anion Gap 9 mmol/L (10-20); BUN (Urea Nitrogen) 13 mg/dL (8.4-21.0); Calc. Creatinine Clearance 140 mL/min (70-130); Carbon Dioxide 27 mmol/L (22-29); Chloride 106 mmol/L (98-107); Estimated GFR-MDRD Greater than 90; Glucose 99 mg/dL (70-105); Phosphorus 1.7 mg/dL (2.3-4.7); Sodium 138 mmol/L (136-145)
[2019-04-16] MEDS: Lorazepam 2 MG/ML VIAL SLOW IVP PRN ×2 (05:12→14:05)
[2019-04-16] MEDS: CEFAZOLIN 2 GM in Premix Bag 1 BAG IVPB SCH (05:16)
[2019-04-16] MEDS: Sodium Chloride 0.9% 1,000 ML IV SCH ×3 (06:43→23:07)
[2019-04-16] MEDS ORDERED: PHOS-NAK 1 PKT PACK PO SCH (08:45)
[2019-04-16] MEDS: Famotidine/PF 20 mg/2ml Vial SLOW IVP SCH ×2 (09:25→21:04)
[2019-04-16] MEDS: fentaNYL Citrate/PF 2,000 MCG in Sodium Chloride 0.9% 60 ML IV SCH (09:26)
[2019-04-16] MEDS: Ascorbic Acid 500 mg Chewable Tablet PO SCH (09:33)
--- NOTE | 2019-04-16 09:34 | OP ---
DATE OF PROCEDURE: 04/15/2019 PREOPERATIVE DIAGNOSES: 1. 3B right distal femur intra-articular fracture. 2. Right first, second, third metatarsal fractures. 3. Left second through fifth metatarsal neck fractures. 4. Left cuboid and navicular fracture. POSTOPERATIVE DIAGNOSES: Same with subluxation of 1st TMT joint PROCEDURE: 1. Open reduction internal fixation of right distal femur intraarticular fracture 2. Open reduction internal fixation of right 1st and 2nd metatarsal (See Dr Olmos Operative report) 3. Open reduction and pinning of 1st TMT joint (See Dr Olmos Operative report) 4. Nonoperative management of 2-5th Metatarsal neck fractures, cuboid, navicular fracture DIRECTOR OF PREMIUM SEAT SALES: Jama Olmos MD ANESTHESIOLOGIST: Dr. Polanco. ANESTHESIA: The patient has a trach in place. ESTIMATED BLOOD LOSS: 150 mL in the joint, 75 mL of blood loss. TOURNIQUET TIME: The patient had 113 minutes at 300 mmHg. ANTIBIOTICS: Ancef 2 g. IMPLANTS: 4.5 VA-LCP Condylar Plate 10 hole with four 4.5 nonlocking screws, four 5-0 distal locking screws, and two 4.5 headless Synthes implants. COMPLICATIONS: None. HISTORY OF PRESENT ILLNESS: Mr. Casey is a 18-year-old male status post fall from a bridge, sustaining multiple fractures, left elbow, intra-articular comminuted fracture, right distal femur, bilateral foot fractures. The patient was consented on-call to the OR for right distal femur open reduction and internal fixation, as well as right foot fracture open reduction and internal fixation. Please see Dr. Olmos's dictation for full details of fixation of right foot. I discussed with the patient's family the risks and benefits of surgery, pain, scar, bleeding, infection, damage to vital structures, arthritis, loss of reduction, loss of life or limb. The patient's family understood the risks and benefits of the procedure and elected to proceed. DESCRIPTION OF PROCEDURE: After time-out was performed, the patient's lateral skin incision was made. He had low platelet counts and was slightly anemic for procedures. We placed a sterile tourniquet and continued with our procedures, left up 113 minutes, made swashbuckler approach down off lateral edge of the patellar tendon proximally streaking back posteriorly, made incision down through skin, came down and found the patient's lateral retinaculum. We did our arthrotomy extending on the lateral aspect of the tendon distally coming up and then taking the fascia and going subvastus laterally to expose the patient's distal femur fractures. We took out the patient's fat pad to better expose it. We placed a inocente came down and found the distal shaft. There was some comminution, but essentially three large fragments of the large lateral femoral condyle split in the sagittal plane of the medial femoral condyle and then some comminution throughout. We used arthrotomy to expose the medial aspect of the bone. We placed K-wires to lag two pieces medially together and placed a headless screw to hold those fixed. We then used that piece and clamped across the rim of the medial and lateral femoral condyle, placed a screw across to help hold the segments together. We pulled the bone out the length and placed a clamp across, liking the position in length. We placed our plate in position. We pinned our center hole screw across the bone and then placed a K-wire proximally in the 10 hole to help to create our box. We placed four 4.5 screws in the segment distally for fixation of the two fragments. We placed four 4.5 locking screws, one in the fourth hole to compress the plate to the bone and then a total of four nonlocking 4.5 screws in the shaft to help and control the fracture. Being completed this, we liked the overall alignment and fixation , felt like he did not need further fixation of the lateral segment. Therefore, given the low nature of the fracture, we washed the joint and washed out any potential free fragments. We actually had a stable PCL and ACL after repair. MCL and LCL felt stable also. We closed the lateral retinaculum with #2 Stratafix. We closed the skin with 2-0 and then rakel, and we made two small stab incisions for the proximal two holes, which we closed the rakel with a tourniquet down after 113 minutes. We then moved the patient's right foot. Please see Dr. Olmos' s dictation for full details. The patient's left foot is second through fifth metatarsal fractures, cuboid and navicular fracture, which will be treated nonoperatively. The patient will be nonweightbearing to his bilateral lower extremities for 12 weeks. His left foot will be placed in a 3D boot. His right foot will be placed in a knee immobilizer and his splint that is in place, we will transition eventually to a boot to his right foot. His left elbow will be affixed in a delayed manner likely on Monday of next week. Job ID: [id number] MTDD
[2019-04-16] MEDS: Midazolam HCl 2 mg/2 ml Vial IVP SCH (09:48)
--- NOTE | 2019-04-16 10:20 | RAD ---
ONE VIEW CHEST: COMPARISON: 04/15/2019. HISTORY: Followup pneumothorax. FINDINGS: Redemonstration of a tracheostomy and left-sided central venous catheter. Right-sided chest tube is noted. Small right apical pneumothorax does remain. Stable aeration of the lung parenchyma and stab le cardiac silhouette. IMPRESSION: Small right side pneumothorax does remain. POS: OFF
[2019-04-16] MEDS ORDERED: Pancrelipase DR 12000 1 CAP FS PRN (12:01)
[2019-04-16] MEDS ORDERED: Sodium Bicarbonate Tab 325 MG TAB PER TUBE PRN (12:01)
[2019-04-16] MEDS ORDERED: HYDROcodone/Acetaminophen 10/325 mg Tablet PO PRN (12:56)
[2019-04-16] MEDS ORDERED: carBAMazepine 200 MG TAB PO SCH (13:15)
--- NOTE | 2019-04-16 15:53 | CT ---
Exam: Head CT without contrast HISTORY: Worsening altered mental status. COMPARISON: 04/13/2019 FINDINGS: Hemorrhage: No intraparenchymal hemorrhage or extra-axial hematoma. Brain parenchyma: Cortical barbosa-white matter differentiation is preserved. No mass effect or midline shift. Basilar cisterns are patent. Ventricular system: Ventricles and sulci are patent and symmetric. Calvarium: Intact. Sinuses and mastoid air cells: Minimal opacification of the ethmoid air cells. Minimal sphenoid sinus . IMPRESSION: 1. No acute intracranial process. 2. No significant interval change.
--- NOTE | 2019-04-16 16:06 | CT ---
CT Facial Bones WO Con History: Post reduction mandible fracture Comparison: CT face April 13, 2019 Findings: Interval placement of external fixator through the mandibular fracture with improved alignm ent. The maxilla and mandible are all wired with intramaxillary fixation. Numerous displaced fractures of the anterior mandibular body and symphysis are displaced posteriorly. Normal location of the temporomandibular joint. Fracture of the left mandibular neck. Right mandibula r neck is intact. Normal cervical spine alignment. No orbital roof or floor fracture. There are absence of the left and right maxillary central incisor as well as fractures of the associa johnna alveolar bone extending to the nasal process of the maxilla. Impression: Improved alignment post external and intermaxillary fixation.
[2019-04-16] MEDS: Ferrous Sulfate 325 MG TAB PO SCH (17:53)
[2019-04-16] MEDS: HYDROcodone/Acetaminophen 10/325 mg Tablet PO SCH ×2 (17:54→23:06)
[2019-04-16] MEDS: carBAMazepine 200 MG TAB PO SCH (17:55)
--- NOTE | 2019-04-16 17:57 | PRG ---
DATE OF SERVICE: 04/16/2019 SUBJECTIVE: Mr. Casey is a 18-year-old man, who is post injury day #3, status post attempted suicide by jumping off the bridge. The patient sustained multiple traumatic injuries. All his orthopedic surgical injuries have been repaired except for his elbow fracture. His facial fractures have also been repaired. The patient is on mechanical ventilator support. Lying on sedation. He moves all extremities and follows commands. OBJECTIVE: VITAL SIGNS: This morning on my examination included blood pressure 121/66, pulse 82, respiratory rate 14, temperature 99.6 degrees Fahrenheit with a maximum temperature of 100.3 degrees Fahrenheit within the last 24 hours. Oxygen saturation 100% on FiO2 of 30%. HEENT: Pupils are equal, round, and reactive to light and accommodation. He has decreased facial swelling. NECK: No jugular venous distention noted. HEART: Reveals regular rate and rhythm. No murmurs or gallops auscultated. LUNGS: Clear to auscultation bilaterally. Breathing, regular and nonlabored. ABDOMEN: Soft, nontender, and nondistended. Tracheostomy site as well as the PEG tube site are clean. No hemorrhage noted. EXTREMITIES: Reveals 2+ radial and pedal pulses bilaterally. NEUROLOGIC: Reveals no focal deficits present. LABORATORY FINDINGS: Today includes a CBC with 9600 white blood cells, hemoglobin and hematocrit of 7.1 and 20.7 respectively. Platelet count is 132,000. Metabolic profile; sodium 138, potassium 4.0, chloride is 106, bicarb is 27, BUN 13, creatinine 0.77, glucose is 99, magnesium 2.0, and phosphorus is 1.7. IMPRESSIONS: 1. Post injury day #3, status post jumped from the bridge. 2. Multiple traumatic injuries as stated above. 3. Acute posttraumatic respiratory failure, stable. 4. Acute hypophosphatemia. PLAN: 1. Correct abnormal electrolytes. 2. We will initiate antidepressants/neuroleptics and then begin to wean mechanical ventilator support as the patient tolerates. 3. We will initiate enteral nutritional support through this PEG tube. TIME SPENT: Total critical care time is 45 minutes. Job ID: [id number]
--- NOTE | 2019-04-16 19:17 | CON ---
DATE OF CONSULTATION: 04/16/2019 HISTORY OF PRESENT ILLNESS: Mr. Casey is a 18-year-old male, status post jump from a bridge yesterday, was evaluated by Dr. Olmos. He underwent ORIF of his right distal femur as well as right foot. The patient is currently splinted, neurovascularly intact to his left lower extremity. He has pinning of boot for his metatarsal fracture as well as his cuboid and cuneiform. The patient's left elbow is still in a splint. Resting in bed. He is trached with sitting upright, moving all extremities. The patient's plan will be to send him to the OR on Monday of next week for operative fixation of his olecranon as well as his distal humerus. We gave the patient a period of quiescence. We will take the splint down later on this week or next week to check for wound issues and plan for operative fixation at that time. Job ID: [id number]
[2019-04-16] MEDS: Propofol 1,000 MG/100 ML VIAL IV PRN (21:08)
[2019-04-17] MEDS: fentaNYL Citrate/PF 2,000 MCG in Sodium Chloride 0.9% 60 ML IV SCH (01:50)
[2019-04-17] MEDS ORDERED: Acetaminophen 1,000 MG in Premix Bag 1 BAG IVPB PRN (03:53)
[2019-04-17 04:25] LABS: #Eosinphils 0.4 thou/uL (0.0-0.7); #Monocytes 0.8 thou/uL (0.11-0.59); #Neutrophils 6.7 thou/uL (1.40-6.50); %Lymphocytes 10.9 % (28.0-48.0); %Monocytes 9.4 % (0.0-4.0); %Neutrophils 75.6 % (31.0-61.0); Hemoglobin 7.4 g/dL (14.0-18.0); Mean Corpuscular HGB CONC 33.8 g/dL (32.0-36.0); Mean Corpuscular Hemoglobin 31.7 pg (25.0-35.0); Mean Platelet Volume 8.3 fL (7.4-10.4); Platelet Count 130 thou/uL (130-400); RBC Distribution Width 12.8 % (11.5-14.5); Red Blood Cell (RBC) Count 2.33 mill/uL (4.00-5.20); White Blood Cell (WBC) Count 8.8 thou/uL (4.8-10.8)
[2019-04-17] MEDS: Lorazepam 2 MG/ML VIAL SLOW IVP PRN (04:53)
[2019-04-17 04:55] LABS: Anion Gap 8 mmol/L (10-20); BUN (Urea Nitrogen) 13 mg/dL (8.4-21.0); Calc. Creatinine Clearance 170 mL/min (70-130); Calcium 7.9 mg/dL (7.8-10.44); Carbon Dioxide 28 mmol/L (22-29); Chloride 106 mmol/L (98-107); Estimated GFR-MDRD Greater than 90; Glucose 104 mg/dL (70-105); Magnesium 1.9 mg/dL (1.7-2.2); Phosphorus 1.1 mg/dL (2.3-4.7); Potassium 3.5 mmol/L (3.5-5.1); Sodium 138 mmol/L (136-145)
[2019-04-17] MEDS: Sodium Chloride 0.9% 1,000 ML IV SCH ×2 (05:40→15:43)
[2019-04-17] MEDS: Piperacillin/Tazobactam 3.375 GM in Sodium Chloride 0.9% 100 ML IVPB SCH ×4 (05:45→23:17)
[2019-04-17] MEDS: HYDROcodone/Acetaminophen 10/325 mg Tablet PO SCH ×3 (05:45→14:34)
[2019-04-17] MEDS ORDERED: Potassium Phosphate 30 MMOL in Sodium Chloride 0.9% 500 ML IVPB SCH (06:15)
[2019-04-17] MEDS ORDERED: Acetaminophen 500 MG TAB PO PRN (08:06)
[2019-04-17] MEDS: carBAMazepine 200 MG TAB PO SCH ×2 (08:23→10:58)
[2019-04-17] MEDS: Ferrous Sulfate 325 MG TAB PO SCH ×2 (08:24→15:10)
[2019-04-17] MEDS: Famotidine/PF 20 mg/2ml Vial SLOW IVP SCH ×2 (08:26→21:03)
[2019-04-17] MEDS: Ascorbic Acid 500 mg Chewable Tablet PO SCH (08:26)
[2019-04-17] MEDS ORDERED: Senokot 8.6 MG TAB PO SCH (09:30)
[2019-04-17] MEDS ORDERED: cloNIDine 0.1 MG TAB PO SCH ×2 (12:00)
[2019-04-17] MEDS: Morphine 4 MG/ML VIAL SLOW IVP PRN ×2 (12:19→17:01)
[2019-04-17] MEDS ORDERED: risperiDONE 1 MG TAB PO SCH (13:00)
[2019-04-17] MEDS ORDERED: Lorazepam 2 MG/ML VIAL ONE (14:26)
[2019-04-17] MEDS ORDERED: Haloperidol Lactate 5 MG/ML VIAL SLOW IVP PRN (14:40)
[2019-04-17] MEDS ORDERED: Haloperidol Lactate 5 MG/ML VIAL ONE (14:43)
[2019-04-17] MEDS ORDERED: diphenhydrAMINE 50 MG/ML VIAL ONE (14:44)
[2019-04-17] MEDS ORDERED: diphenhydrAMINE 50 MG/ML VIAL IVP SCH (14:45)
[2019-04-17] MEDS ORDERED: Haloperidol Lactate 5 MG/ML VIAL SLOW IVP SCH ×2 (14:45→18:00)
--- NOTE | 2019-04-17 14:49 | PRG ---
DATE OF SERVICE: 04/17/2019 TIME: 2 p.m. SUBJECTIVE: The patient is postoperative day #2, status post closed reduction of mandible fractures, placement of external fixator and wiring of the jaws as well as closure of multiple lacerations. The patient has been agitated overnight, but is currently on trach collar and has had sedation weaned. OBJECTIVE: VITAL SIGNS: The patient's temperature is 100 degrees Fahrenheit, saturating 100% on trach collar, respiratory rate of 16, pulse of 123, and blood pressure to 126/74. GENERAL: The patient is awake. He is alert. He does appear oriented. He does follow commands. His external fixator is in place. His maxillomandibular fixation is in place. His facial and oral wounds are clean, dry, and intact. I see no current signs or symptoms of infection from the maxillofacial skeleton. ASSESSMENT: The patient is doing well postoperative day #2 status post closed reduction and external fixator placement of mandible fractures. PLAN: Continue current care. Appreciate trauma care and support. Would like the patient on continued antibiotics for oral coverage or enteral nutrition. Job ID: [id number]
[2019-04-17] MEDS ORDERED: clonazePAM 0.5 MG TAB PO SCH (15:00)
[2019-04-17] MEDS: carBAMazepine 100 mg Chewable Tablet PO SCH ×2 (15:46→21:57)
[2019-04-17] MEDS: cloNIDine 0.1 MG TAB PO SCH (17:03)
[2019-04-17] MEDS ORDERED: Lorazepam 2 MG/ML VIAL SLOW IVP SCH (17:45)
--- NOTE | 2019-04-17 20:45 | PRG ---
DATE OF SERVICE: 04/17/2019 SUBJECTIVE: Mr. Casey is a 18-year-old man, who is post-injury day #4, status post attempted suicide by jumping off the bridge. The patient remains on mechanical ventilator support. He has exhibited intermittent episodes of severe agitation, controlled with neuroleptics. He is tolerating tube feeds at goal. He has not had any bowel movement. Urinary output has been adequate. OBJECTIVE: VITAL SIGNS: Otherwise include blood pressure 134/87, pulse 102, respiratory rate is 12, temperature is 101.7 degrees Fahrenheit, oxygen saturation is 100% on FiO2 of 30%. HEENT: There is decreasing facial swelling present. Pupils are equal, round, reactive to light bilaterally. HEART: Regular rate with mild sinus tachycardia. No murmurs or gallops auscultated. LUNGS: Clear to auscultation bilaterally. Breathing, regular and nonlabored. ABDOMEN: Soft, nontender, and nondistended. EXTREMITIES: 2+ radial and pedal pulses bilaterally. Edward Coma Scale is 11T. LABORATORY FINDINGS: Today include a CBC with 8800 white blood cells, hemoglobin and hematocrit 7.4 and 21.9 respectively, platelet count is 130,000. Metabolic profile; sodium 138, potassium 3.5, chloride is 106, bicarb 28, BUN 13, creatinine 0.69, glucose 104, magnesium 1.9, and phosphorus is 1.1. IMPRESSION: 1. Post-injury day #4, status post attempted suicide by jumping off the bridge. 2. Multiple traumatic injuries, stable. 3. Resolving acute posttraumatic respiratory failure. 4. Acute metabolic encephalopathy, likely exacerbation of underlying chronic depression. 5. Acute hypokalemia. 6. Acute hypomagnesemia. 7. Acute hypophosphatemia. PLAN: 1. Correct abnormal electrolytes. 2. We will optimize neuroleptic management of this patient's agitation. 3. Once stable neurologically, we will increase physical and occupational therapy. 4. We will ask social media content specialist to begin discharge planning to the neuro rehab in the coming days. 5. The patient will be weaned from mechanical ventilator support down to trach collar as tolerated. 6. Above findings and plan discussed with the patient's parents at bedside. They indicated understanding of information given. I have answered their questions. Total critical care time is 45 minutes. Job ID: [id number]
[2019-04-17] MEDS: Haloperidol Lactate 5 MG/ML VIAL SLOW IVP PRN ×2 (21:03→22:43)
[2019-04-17] MEDS: clonazePAM 1 MG TAB PO SCH (21:03)
--- NOTE | 2019-04-17 21:51 | RAD ---
EXAM: Single view of the chest HISTORY: Chest tube placement for pneumothorax COMPARISON: 04/16/2019 FINDINGS: Single view of the chest shows a normal sized cardiomediastinal silhouette. The lines and tubes are unchanged in position. No pneumothorax is visualized. There is no evidence of consolidation, mass, or pleural effusion. The bones are unremarkable. IMPRESSION: Evacuation of right pneumothorax
[2019-04-18] MEDS: Haloperidol Lactate 5 MG/ML VIAL SLOW IVP PRN ×5 (00:30→14:31)
[2019-04-18] MEDS: HYDROcodone/Acetaminophen 10/325 mg Tablet PO SCH ×4 (00:33→17:39)
[2019-04-18] MEDS: clonazePAM 1 MG TAB PO SCH ×6 (01:31→21:00)
[2019-04-18] MEDS ORDERED: Lorazepam 2 MG/ML VIAL SLOW IVP SCH (02:00)
[2019-04-18] MEDS: carBAMazepine 100 mg Chewable Tablet PO SCH ×4 (02:29→21:00)
[2019-04-18 03:55] LABS: #Eosinphils 0.2 thou/uL (0.0-0.7); #Lymphocytes 0.6 thou/uL (1.20-3.40); #Monocytes 1.1 thou/uL (0.11-0.59); #Neutrophils 10.1 thou/uL (1.40-6.50); %Basophils 0.1 % (0.0-1.0); %Eosinophils 1.5 % (0.0-10.0); %Lymphocytes 5.4 % (28.0-48.0); %Monocytes 8.8 % (0.0-4.0); %Neutrophils 84.2 % (31.0-61.0); Hemoglobin 7.9 g/dL (14.0-18.0); Mean Corpuscular HGB CONC 33.5 g/dL (32.0-36.0); Mean Corpuscular Hemoglobin 31.4 pg (25.0-35.0); Mean Corpuscular Volume 93.9 fL (78.0-98.0); Mean Platelet Volume 7.6 fL (7.4-10.4); Platelet Count 188 thou/uL (130-400); RBC Distribution Width 12.9 % (11.5-14.5); White Blood Cell (WBC) Count 11.9 thou/uL (4.8-10.8)
[2019-04-18 04:19] LABS: Anion Gap 8 mmol/L (10-20); BUN (Urea Nitrogen) 13 mg/dL (8.4-21.0); Calc. Creatinine Clearance 178 mL/min (70-130); Calcium 8.2 mg/dL (7.8-10.44); Carbon Dioxide 29 mmol/L (22-29); Chloride 105 mmol/L (98-107); Estimated GFR-MDRD Greater than 90; Glucose 115 mg/dL (70-105); Magnesium 1.9 mg/dL (1.7-2.2); Phosphorus 1.9 mg/dL (2.3-4.7); Potassium 3.8 mmol/L (3.5-5.1); Sodium 138 mmol/L (136-145)
[2019-04-18] MEDS ORDERED: PHOS-NAK 1 PKT PACK PO SCH (04:30)
[2019-04-18] MEDS: cloNIDine 0.1 MG TAB PO SCH ×5 (05:01→17:43)
[2019-04-18] MEDS: Piperacillin/Tazobactam 3.375 GM in Sodium Chloride 0.9% 100 ML IVPB SCH ×3 (05:02→17:44)
[2019-04-18] MEDS: Ferrous Sulfate 325 MG TAB PO SCH ×2 (08:21→17:03)
[2019-04-18] MEDS: Famotidine/PF 20 mg/2ml Vial SLOW IVP SCH ×2 (08:23→21:02)
[2019-04-18] MEDS: PHOS-NAK 1 PKT PACK PO SCH ×2 (08:23→20:59)
[2019-04-18] MEDS: Ascorbic Acid 500 mg Chewable Tablet PO SCH (08:23)
[2019-04-18] MEDS: Polyethylene Glycol 3350 17 GM Packet PER TUBE SCH (08:24)
--- NOTE | 2019-04-18 08:32 | RAD ---
RADIOGRAPH CHEST 1 VIEW: DATE: 04/18/2019 TIME: 5:04 AM HISTORY: 18-year-old male with right pneumothorax COMPARISON: 04/17/2019 FINDINGS: Supine positioning makes this insensitive for the detection of pneumothorax. No obvious large pneumot horax is visible. Right-sided subcutaneous emphysema along chest wall. Right-sided chest tube, tracheostomy tube, and left subclavian central venous catheter remain unchanged in position. No cardi omegaly. No interval change of mild airspace density at left lower lobe medial lung base. No pulmonary edema. IMPRESSION: 1. No interval change. 2. Right-sided chest tube remains. 3. Infiltrate versus atelectasis at left lower lobe. 4. Recommend upright or semiupright view to evaluate for residual pneumothorax.
[2019-04-18] MEDS ORDERED: risperiDONE 1 MG TAB PO SCH (09:00)
[2019-04-18] MEDS ORDERED: diphenhydrAMINE 50 MG/ML VIAL IVP SCH (09:30)
[2019-04-18] MEDS ORDERED: Bisacodyl 10 MG SUPP PR SCH (10:00)
[2019-04-18] MEDS ORDERED: Acetaminophen 500 MG TAB PO SCH (10:00)
--- NOTE | 2019-04-18 15:12 | PRG ---
DATE OF SERVICE: 04/18/2019 SUBJECTIVE: The patient was seen this morning, sitting up in bed and moderately agitated. He did receive one time dose of 0.5 mg overnight for similar agitation. Currently, the patient is on Tegretol, Klonopin, clonidine, p.r.n. Haldol as well for agitation. He does also need p.r.n. as well as scheduled Norcos and morphine. Overnight, it was also noted that the patient had a T-max of 101.7. There was no associated hypotension. He is intermittently tachycardic, which is associated with bouts of agitation. His urinary output is sufficient. He has not yet had a bowel movement at this time. Chest tube is to water seal on the right side and chest x-ray shows no residual pneumothorax. There is a slight bump as well in his white count at 11.9 from 8.8 today. Davis-cultures collected on April 15, 2019 have not grown any specific organism, and we will continue to monitor the patient. OBJECTIVE: VITAL SIGNS: Temperature 99.1, pulse 104, respirations 14, oxygen saturation 99% on trach collar, and blood pressure 136/89. GENERAL: Well-appearing young male, moderately agitated in bed, but is redirectable and follows commands to lie down. No signs of acute distress. PULMONARY: Equal chest rise and fall. Clear breath sounds bilaterally. No signs of acute respiratory distress. Right-sided chest tube in place and to water seal. CARDIAC: Regular rate and rhythm. No murmurs, gallops, or rubs. GI: Abdomen is soft, nontender, nondistended. EXTREMITIES: Bilateral lower extremities with splint in place. Moving all toes bilaterally, which are clean, dry, and warm as well. Bilateral upper extremities, gross motor and sensation are intact. The patient with ex-fix to mandible is in place. LABORATORY FINDINGS: White count 11.9, hemoglobin 7.9, hematocrit 23.5, platelets 188. Sodium 138, potassium 3.8, chloride 105, carbon dioxide 29, BUN 13, creatinine 0.66, glucose 115, phos 1.9, magnesium 1.6. DIAGNOSTIC FINDINGS: Chest x-ray completed this morning demonstrates no interval changes. Right-sided chest tube remains, infiltrate versus atelectasis in left lower lobe. Recommend upright or semi-upright view to evaluate for residual pneumothorax. ASSESSMENT: 1. Status post jump 20 feet, suicidal attempt. 2. Open maxilla and mandibular fractures. 3. Multiple lip lacerations, dental fractures, complex chin laceration. 4. Bilateral pneumothoraces with right-sided chest tube in place. 5. Left olecranon and humerus fracture. 6. Right femur fracture. 7. Right tibial fracture. 8. Fractures to the bilateral feet. 9. Resolving acute posttraumatic respiratory failure. 10. Acute metabolic encephalopathy, likely exacerbation of underlying chronic depression. 11. Acute hypokalemia and hypophosphatemia. PLAN: We will correct electrolytes today. The patient was given one time dose of 50 mg of Benadryl due to increased agitation during morning rounds. The patient to be up out of bed and into a chair today. We will leave chest tube in place and complete another chest x-ray for tomorrow. The patient also started on bowel regimen as well as given a one time Dulcolax suppository. We will start chemo DVT prophylaxis with Lovenox b.i.d. today. Continue to feeds toward equal. We will discontinue additional IV fluids at this time. We will continue current Tegretol, Klonopin, clonidine, and Haldol doses as previously recommended. We will change Tylenol to 1 g scheduled q.6 hours. Continue to monitor for signs of infection and follow up cultures previously collected on April 15. We will continue Zosyn for now. The patient was seen and evaluated by Dr. Alavrado and myself this morning in the ICU. Job ID: [id number]
[2019-04-18] MEDS ORDERED: RisperDAL Oral Solution 1 MG/ML UDCUP PO SCH (15:45)
[2019-04-18] MEDS: Acetaminophen 500 MG TAB PO SCH ×2 (16:06→21:03)
[2019-04-18] MEDS: Enoxaparin Sodium 40 MG/0.4 ML SYRINGE SC SCH (20:59)
[2019-04-18] MEDS ORDERED: diphenhydrAMINE 12.5 MG/5 ML UDCUP PO SCH (21:00)
[2019-04-18] MEDS: RisperDAL Oral Solution 1 MG/ML UDCUP PO SCH (21:02)
[2019-04-19] MEDS: clonazePAM 1 MG TAB PO SCH ×6 (00:28→21:13)
[2019-04-19] MEDS: cloNIDine 0.1 MG TAB PO SCH ×4 (00:28→18:30)
[2019-04-19] MEDS: Piperacillin/Tazobactam 3.375 GM in Sodium Chloride 0.9% 100 ML IVPB SCH ×4 (00:28→18:28)
[2019-04-19] MEDS: HYDROcodone/Acetaminophen 10/325 mg Tablet PO SCH ×4 (00:29→17:14)
[2019-04-19] MEDS: carBAMazepine 100 mg Chewable Tablet PO SCH ×4 (03:05→21:13)
[2019-04-19] MEDS: Acetaminophen 500 MG TAB PO SCH ×2 (03:05→10:36)
[2019-04-19 03:47] LABS: #Eosinphils 0.3 thou/uL (0.0-0.7); #Lymphocytes 0.8 thou/uL (1.20-3.40); #Monocytes 0.9 thou/uL (0.11-0.59); #Neutrophils 8.9 thou/uL (1.40-6.50); %Basophils 0.2 % (0.0-1.0); %Eosinophils 2.7 % (0.0-10.0); %Lymphocytes 7.6 % (28.0-48.0); %Monocytes 8.3 % (0.0-4.0); %Neutrophils 81.3 % (31.0-61.0); Hemoglobin 8.2 g/dL (14.0-18.0); Mean Corpuscular HGB CONC 32.9 g/dL (32.0-36.0); Mean Corpuscular Hemoglobin 31.2 pg (25.0-35.0); Mean Platelet Volume 7.7 fL (7.4-10.4); Platelet Count 225 thou/uL (130-400); RBC Distribution Width 13.1 % (11.5-14.5); Red Blood Cell (RBC) Count 2.61 mill/uL (4.00-5.20)
[2019-04-19 04:11] LABS: Anion Gap 9 mmol/L (10-20); BUN (Urea Nitrogen) 18 mg/dL (8.4-21.0); Calc. Creatinine Clearance 190 mL/min (70-130); Calcium 8.7 mg/dL (7.8-10.44); Carbon Dioxide 28 mmol/L (22-29); Chloride 106 mmol/L (98-107); Estimated GFR-MDRD Greater than 90; Glucose 108 mg/dL (70-105); Phosphorus 2.6 mg/dL (2.3-4.7); Sodium 139 mmol/L (136-145)
[2019-04-19] MEDS: RisperDAL Oral Solution 1 MG/ML UDCUP PO SCH ×3 (05:03→21:11)
[2019-04-19] MEDS ORDERED: PHOS-NAK 1 PKT PACK PO SCH (07:30)
--- NOTE | 2019-04-19 08:21 | RAD ---
PORTABLE CHEST: HISTORY: Right chest tube placement. CCU followup. COMPARISON: 04/18/2019. FINDINGS: Right chest tube is unchanged. Subcutaneous emphysema along the right lateral chest wall again noted . Evidence of small right apical pneumothorax. Lungs are otherwise clear. Heart and mediastinum un remarkable. Central line unchanged. Tracheostomy device again noted. IMPRESSION: Probable small right apical pneumothorax. Right subcutaneous emphysema again noted. No acute interv al change. POS: OFF
[2019-04-19] MEDS: Famotidine/PF 20 mg/2ml Vial SLOW IVP SCH ×2 (08:42→21:13)
[2019-04-19] MEDS: Ferrous Sulfate 325 MG TAB PO SCH ×2 (08:42→16:13)
[2019-04-19] MEDS: Ascorbic Acid 500 mg Chewable Tablet PO SCH ×2 (08:42→21:12)
[2019-04-19] MEDS: Polyethylene Glycol 3350 17 GM Packet PER TUBE SCH (08:43)
[2019-04-19] MEDS: Enoxaparin Sodium 30 MG/0.3 ML SYRINGE SC SCH ×2 (09:47→21:12)
[2019-04-19] MEDS: Acetaminophen 325 MG TAB PO SCH ×3 (09:50→21:12)
[2019-04-19] MEDS: Enoxaparin Sodium 40 MG/0.4 ML SYRINGE SC SCH (10:36)
--- NOTE | 2019-04-19 11:24 | PRG ---
DATE OF SERVICE: 04/19/2019 SUBJECTIVE: Mr. Casey is post-injury day #6, status post attempted suicide by jumping off the bridge. The patient sustained multiple traumatic injuries including multiple upper and lower extremity fractures as well as complex facial fractures. All chores have been fixed except for the left elbow, which is currently immobilized in a splint. Definitive surgical treatment is deferred to next week. He continues to exhibit intermittent episodes of severe agitation, although less frequent over the last 24 hours. He is currently on multiple neuroleptic agents. Urinary output has been adequate. He is tolerating tube feeds at goal and has had no bowel movement yet. OBJECTIVE: VITAL SIGNS: This morning include blood pressure 124/65, pulse is 84, respiratory rate is 23, temperature is 98.6 degrees Fahrenheit, maximum temperature in last 24 hours is 101.7 degrees Fahrenheit, oxygen saturation is 100% on FiO2 of 30%. HEENT: Pupils are equal, round, reactive to light bilaterally. He has no jugular venous distention noted. HEART: Regular rate and rhythm. No murmurs or gallops auscultated. LUNGS: Clear to auscultation bilaterally. Breathing, regular and nonlabored. ABDOMEN: Soft, nontender, nondistended. Bowel sounds in all 4 quadrants appear normoactive. EXTREMITIES: 2+ radial and pedal pulses bilaterally. No ankle edema is present. NEUROLOGIC: No focal deficits present. LABORATORY FINDINGS: Today include a CBC with 11,000 of white blood cells, hemoglobin and hematocrit 8.2 and 24.8 respectively, and platelet count is 225,000. Metabolic profile; sodium 139, potassium 4.0, chloride is 106, bicarb is 28, BUN is 18, creatinine 0.60, glucose 108, magnesium is 2.0, and phosphorus is 2.6. IMPRESSION: 1. Post-injury day #6, status post attempted suicide by jumping off the bridge. 2. Multiple traumatic fractures of upper and lower extremities. 3. Multiple facial fractures, status post surgical repair. 4. Severe acute metabolic encephalopathy with a history of underline chronic depression as well as bipolar disorder. 5. Stable acute blood loss anemia. PLAN: 1. Continue current neuroleptics. 2. Initiate physical and occupational therapy. 3. Ask delinquency prevention social worker to initiate discharge planning for possible transfer to neurorehabilitation with inpatient Psychiatry once all surgical issues have been addressed. Job ID: [id number]
[2019-04-20] MEDS: cloNIDine 0.1 MG TAB PO SCH ×4 (00:38→18:09)
[2019-04-20] MEDS: HYDROcodone/Acetaminophen 10/325 mg Tablet PO SCH ×4 (00:38→17:16)
[2019-04-20] MEDS: Piperacillin/Tazobactam 3.375 GM in Sodium Chloride 0.9% 100 ML IVPB SCH ×2 (00:38→05:09)
[2019-04-20] MEDS: clonazePAM 1 MG TAB PO SCH ×6 (00:40→21:29)
[2019-04-20] MEDS: carBAMazepine 100 mg Chewable Tablet PO SCH ×4 (04:44→21:29)
[2019-04-20] MEDS: Acetaminophen 325 MG TAB PO SCH (04:45)
[2019-04-20 04:57] LABS: #Eosinphils 0.4 thou/uL (0.0-0.7); #Lymphocytes 1.2 thou/uL (1.20-3.40); #Monocytes 0.9 thou/uL (0.11-0.59); #Neutrophils 6.3 thou/uL (1.40-6.50); %Basophils 0.2 % (0.0-1.0); %Lymphocytes 13.9 % (28.0-48.0); %Monocytes 10.6 % (0.0-4.0); %Neutrophils 71.3 % (31.0-61.0); Hemoglobin 8.6 g/dL (14.0-18.0); Mean Corpuscular HGB CONC 33.1 g/dL (32.0-36.0); Mean Corpuscular Hemoglobin 31.3 pg (25.0-35.0); Mean Corpuscular Volume 94.6 fL (78.0-98.0); Mean Platelet Volume 7.4 fL (7.4-10.4); Platelet Count 298 thou/uL (130-400); RBC Distribution Width 13.2 % (11.5-14.5); Red Blood Cell (RBC) Count 2.76 mill/uL (4.00-5.20); White Blood Cell (WBC) Count 8.8 thou/uL (4.8-10.8)
[2019-04-20] MEDS: RisperDAL Oral Solution 1 MG/ML UDCUP PO SCH ×3 (05:10→21:29)
[2019-04-20 05:17] LABS: Anion Gap 10 mmol/L (10-20); BUN (Urea Nitrogen) 17 mg/dL (8.4-21.0); Calc. Creatinine Clearance 198 mL/min (70-130); Calcium 8.5 mg/dL (7.8-10.44); Carbon Dioxide 25 mmol/L (22-29); Chloride 107 mmol/L (98-107); Estimated GFR-MDRD Greater than 90; Glucose 105 mg/dL (70-105); Phosphorus 2.8 mg/dL (2.3-4.7); Potassium 4.2 mmol/L (3.5-5.1); Sodium 138 mmol/L (136-145)
[2019-04-20] MEDS: Ferrous Sulfate 325 MG TAB PO SCH ×2 (08:10→17:08)
[2019-04-20] MEDS: Ascorbic Acid 500 mg Chewable Tablet PO SCH ×2 (08:10→21:29)
[2019-04-20] MEDS: Polyethylene Glycol 3350 17 GM Packet PER TUBE SCH (08:10)
[2019-04-20] MEDS: Enoxaparin Sodium 30 MG/0.3 ML SYRINGE SC SCH ×2 (08:11→21:29)
[2019-04-20] MEDS: Famotidine/PF 20 mg/2ml Vial SLOW IVP SCH ×2 (08:11→21:30)
[2019-04-20] MEDS ORDERED: PHOS-NAK 1 PKT PACK PO SCH (08:15)
--- NOTE | 2019-04-20 08:56 | RAD ---
RADIOGRAPH CHEST 1 VIEW: DATE: 04/20/2019 TIME: 5:30 AM HISTORY: 18-year-old male for right pneumothorax follow-up. COMPARISON: 04/19/2019 5:27 AM FINDINGS: Right-sided chest tube is no longer present. The previously demonstrated tiny right apical pneumothor ax is no longer visualized. Mild haziness of right lower lung zone. No consolidation or pulmonary edema. No cardiomegaly. Left lung is clear. Left-sided central venous catheter remains with distal ti p overlying SVC/right atrial junction. Lateral costophrenic angles are bilaterally sharp. Tracheostomy tube remains. IMPRESSION: 1. Interval removal of right-sided thoracostomy tube. 2. Interval resolution of right pneumothorax. 3. Tracheostomy tube and central venous catheter remain.
--- NOTE | 2019-04-20 13:10 | PRG ---
DATE OF SERVICE: 04/20/2019 SUBJECTIVE: Mr. Casey is a 18-year-old man, who attempted suicide by jumping off the bridge. He is post injury day #7, status post multiple complex facial fractures, left elbow fracture, right distal femur fracture, right tibial plateau fracture, bilateral pneumothoraces as well as multiple facial lacerations. All injuries have been repaired, except for the left elbow fracture, which is deferred to early next week. The patient has exhibited multiple episodes of intermittent severe agitation requiring neuroleptics. He is less impulsive and less agitated over the last 24 hours. This morning, he is awake and alert. He moves all extremities and follows commands. He reports adequate pain control. He is tolerating tube feeds at goal and he is having bowel movements. Urinary output is adequate. OBJECTIVE: VITAL SIGNS: This morning includes blood pressure is 108/55, pulse is 94, respiratory rate is 19, temperature is 100.3 degrees Fahrenheit, which is the maximum temperature in last 24 hours. HEENT: Pupils are equal, round, and reactive to light and accommodation. HEART: Reveals regular rate and rhythm. No murmurs or gallops auscultated. LUNGS: Clear to auscultation bilaterally. Breathing, regular and nonlabored. ABDOMEN: Soft, nontender, nondistended. Bowel sounds in all 4 quadrants appear normoactive. EXTREMITIES: Reveal 2+ radial and pedal pulses bilaterally. No ankle edema is present. NEUROLOGIC: Reveals no focal deficits present. LABORATORY FINDINGS: Today includes a CBC with 8800 white blood cells, hemoglobin and hematocrit are stable at 8.6 and 26.1 respectively. Platelet count is also stable at 298,000. Metabolic profile; sodium is 138, potassium is 4.2, chloride is 107, bicarb is 25, BUN is 17, creatinine is 0.63, glucose is 105, magnesium is 2.0, and phosphorus is 2.8. IMPRESSIONS: 1. Post-injury day #7, status post attempted suicide by jumping off the bridge. 2. Multiple facial, upper and lower extremity fractures. 3. Bilateral pneumothoraces, resolved. 4. Acute severe metabolic encephalopathy, resolving. 5. Acute blood loss anemia, stable. PLAN: 1. We will increase activity per Physical and Occupational therapy. 2. The patient will remain in intensive care unit for another 24 hours, and if neurologically stable, we will consider transfer to general surgical floor with a sitter. 3. We will maintain neuroleptics and consider deescalation as his neurological function warrants. 4. Above findings and plan has been discussed with the patient's father at bedside, who indicates understanding of information given. I have answered his questions. Job ID: [id number]
[2019-04-20] MEDS: Tamsulosin HCl 0.4 MG CAP PO SCH (16:04)
--- NOTE | 2019-04-20 22:09 | EKG ---
Test Reason : Blood Pressure : / mmHG Vent. Rate : 092 BPM Atrial Rate : 092 BPM P-R Int : 162 ms QRS Dur : 080 ms QT Int : 412 ms P-R-T Axes : -87 -69 075 degrees QTc Int : 509 ms Unusual P axis, possible ectopic atrial rhythm Left axis deviation T wave abnormality, consider anterior ischemia Prolonged QT Abnormal ECG Confirmed by MARIA ANTONIA JULIEN ([id number]), proposal editor MARIA E CABELLO ([id number]) on 04/20/2019 10:09:02 PM Referred By: Confirmed By:MARIA ANTONIA JULIEN
[2019-04-21] MEDS: cloNIDine 0.1 MG TAB PO SCH ×4 (00:20→19:30)
[2019-04-21] MEDS: clonazePAM 1 MG TAB PO SCH ×6 (00:20→21:24)
[2019-04-21] MEDS: HYDROcodone/Acetaminophen 10/325 mg Tablet PO SCH ×4 (00:21→19:31)
[2019-04-21] MEDS: carBAMazepine 100 mg Chewable Tablet PO SCH ×4 (03:26→21:24)
[2019-04-21 04:47] LABS: #Eosinphils 0.2 thou/uL (0.0-0.7); #Lymphocytes 1.1 thou/uL (1.20-3.40); #Monocytes 1.1 thou/uL (0.11-0.59); #Neutrophils 6.7 thou/uL (1.40-6.50); %Basophils 0.1 % (0.0-1.0); %Eosinophils 2.2 % (0.0-10.0); %Lymphocytes 12.3 % (28.0-48.0); %Monocytes 12.1 % (0.0-4.0); %Neutrophils 73.4 % (31.0-61.0); Hemoglobin 8.8 g/dL (14.0-18.0); Mean Corpuscular Hemoglobin 31.4 pg (25.0-35.0); Mean Corpuscular Volume 95.3 fL (78.0-98.0); Platelet Count 375 thou/uL (130-400); RBC Distribution Width 13.5 % (11.5-14.5); Red Blood Cell (RBC) Count 2.79 mill/uL (4.00-5.20); White Blood Cell (WBC) Count 9.1 thou/uL (4.8-10.8)
[2019-04-21 05:12] LABS: Anion Gap 11 mmol/L (10-20); BUN (Urea Nitrogen) 19 mg/dL (8.4-21.0); Calc. Creatinine Clearance 179 mL/min (70-130); Calcium 8.9 mg/dL (7.8-10.44); Carbon Dioxide 25 mmol/L (22-29); Chloride 105 mmol/L (98-107); Estimated GFR-MDRD Greater than 90; Glucose 115 mg/dL (70-105); Phosphorus 3.9 mg/dL (2.3-4.7); Potassium 4.1 mmol/L (3.5-5.1); Sodium 137 mmol/L (136-145)
[2019-04-21] MEDS: RisperDAL Oral Solution 1 MG/ML UDCUP PO SCH ×3 (06:07→21:22)
[2019-04-21] MEDS: Polyethylene Glycol 3350 17 GM Packet PER TUBE SCH (10:18)
[2019-04-21] MEDS: Famotidine/PF 20 mg/2ml Vial SLOW IVP SCH ×2 (10:18→21:23)
[2019-04-21] MEDS: Ferrous Sulfate 325 MG TAB PO SCH ×2 (10:18→19:28)
[2019-04-21] MEDS: Enoxaparin Sodium 30 MG/0.3 ML SYRINGE SC SCH ×2 (10:19→21:24)
[2019-04-21] MEDS: Tamsulosin HCl 0.4 MG CAP PO SCH (10:19)
[2019-04-21] MEDS: Ascorbic Acid 500 mg Chewable Tablet PO SCH ×2 (10:50→21:23)
--- NOTE | 2019-04-21 14:03 | PRG ---
DATE OF SERVICE: 04/21/2019 SUBJECTIVE: Mr. Casey is a 18-year-old man, who is post injury day #8 today, status post attempted suicide by jumping off the bridge. The patient sustained multiple traumatic injuries. He was less impulsive overnight. This morning, he is awake and alert. Moves all extremities and follows commands. He is tolerating tube feeds at goal and having adequate urinary and bowel function. Joyner catheter which was removed yesterday, was marked by urinary retention required first straight catheterization and then followed by replacement of indwelling Joyner catheter. OBJECTIVE: VITAL SIGNS: Have remained stable, currently these include a blood pressure of 112/58, pulse 87, respiratory rate is 23, temperature is 98.2 degrees Fahrenheit, maximum temperature in last 24 hours is 100.3 degrees Fahrenheit. HEENT: Pupils are equal, round, and reactive to light and accommodation. Facial swelling has almost resolved completely. HEART: Reveals regular rate and rhythm. No murmurs or gallops auscultated. LUNGS: Clear to auscultation bilaterally. His breathing is regular and nonlabored. ABDOMEN: Soft, nontender, nondistended. EXTREMITIES: Reveal 2+ radial and pedal pulses bilaterally. No ankle edema is present. NEUROLOGIC: Reveals no focal deficits present. LABORATORY FINDINGS: Today include 9100 white blood cells, hemoglobin and hematocrit are 8.8 and 26.5 respectively. Platelet count is 375,000. Metabolic profile; sodium 137, potassium 4.1, chloride is 105, bicarb is 25, BUN 19, creatinine 0.67, glucose 115, magnesium 2.0, and phosphorus is 3.9. IMPRESSIONS: 1. Post injury day #8, status post attempted suicide by jumping off the bridge. 2. Multiple traumatic injuries. 3. Resolving acute metabolic encephalopathy with underlying history of mental illness. 4. Stable acute blood loss anemia. PLAN: 1. Increase activity per Physical and Occupational therapy. 2. We will ask OMFS with regard to timing of resumption of oral intake. 3. Continue with current neuroleptic regimen. 4. There is no indication for blood transfusion with regard to the patient's acute blood loss anemia. 5. The patient is certainly hemodynamically and neurologically stable for transfer to general surgical floor with a sitter. 6. Anticipate repair of the left elbow fracture early part of next week per Orthopedic Surgery. Job ID: [id number]
[2019-04-21] MEDS: HYDROcodone/Acetaminophen 10/325 mg Tablet PO PRN (21:22)
[2019-04-22] MEDS: cloNIDine 0.1 MG TAB PO SCH ×5 (01:47→22:57)
[2019-04-22] MEDS: HYDROcodone/Acetaminophen 10/325 mg Tablet PO SCH ×5 (01:48→22:58)
[2019-04-22] MEDS: clonazePAM 1 MG TAB PO SCH ×6 (01:48→21:01)
[2019-04-22] MEDS: carBAMazepine 100 mg Chewable Tablet PO SCH ×4 (03:47→21:01)
[2019-04-22] MEDS: RisperDAL Oral Solution 1 MG/ML UDCUP PO SCH ×3 (05:11→22:56)
[2019-04-22 06:14] LABS: #Eosinphils 0.3 thou/uL (0.0-0.7); #Lymphocytes 1.5 thou/uL (1.20-3.40); #Monocytes 1.1 thou/uL (0.11-0.59); #Neutrophils 7.7 thou/uL (1.40-6.50); %Basophils 0.3 % (0.0-1.0); %Eosinophils 3.3 % (0.0-10.0); %Lymphocytes 14.4 % (28.0-48.0); %Monocytes 9.9 % (0.0-4.0); %Neutrophils 72.1 % (31.0-61.0); Hemoglobin 9.6 g/dL (14.0-18.0); Mean Corpuscular HGB CONC 32.9 g/dL (32.0-36.0); Mean Corpuscular Hemoglobin 31.4 pg (25.0-35.0); Mean Corpuscular Volume 95.3 fL (78.0-98.0); Mean Platelet Volume 7.1 fL (7.4-10.4); Platelet Count 485 thou/uL (130-400); RBC Distribution Width 13.7 % (11.5-14.5); Red Blood Cell (RBC) Count 3.07 mill/uL (4.00-5.20); White Blood Cell (WBC) Count 10.6 thou/uL (4.8-10.8)
[2019-04-22 06:48] LABS: Anion Gap 11 mmol/L (10-20); BUN (Urea Nitrogen) 22 mg/dL (8.4-21.0); Calc. Creatinine Clearance 179 mL/min (70-130); Calcium 9.4 mg/dL (7.8-10.44); Carbon Dioxide 28 mmol/L (22-29); Chloride 104 mmol/L (98-107); Estimated GFR-MDRD Greater than 90; Glucose 101 mg/dL (70-105); Magnesium 2.3 mg/dL (1.7-2.2); Potassium 4.5 mmol/L (3.5-5.1); Sodium 138 mmol/L (136-145)
[2019-04-22] MEDS: HYDROcodone/Acetaminophen 10/325 mg Tablet PO PRN ×2 (09:08→15:35)
[2019-04-22] MEDS: Ferrous Sulfate 325 MG TAB PO SCH ×2 (09:09→18:27)
[2019-04-22] MEDS: Famotidine/PF 20 mg/2ml Vial SLOW IVP SCH ×2 (09:10→21:02)
[2019-04-22] MEDS: Enoxaparin Sodium 30 MG/0.3 ML SYRINGE SC SCH ×2 (09:10→21:01)
[2019-04-22] MEDS: Polyethylene Glycol 3350 17 GM Packet PER TUBE SCH (09:10)
[2019-04-22] MEDS: Ascorbic Acid 500 mg Chewable Tablet PO SCH ×2 (09:10→21:01)
[2019-04-22] MEDS ORDERED: CEFAZOLIN 2 GM in Premix Bag 1 BAG IVPB SCH (10:00)
--- NOTE | 2019-04-22 11:58 | PRG ---
DATE OF SERVICE: 04/22/2019 SUBJECTIVE: Mr. Casey is a 18-year-old man, who attempted suicide 8 days previously by jumping off the bridge. The patient sustained multiple traumatic injuries including extensive facial, upper and lower extremity fractures. The patient was originally quite impulsive and severely agitated requiring multiple neuroleptic drugs for agitation control. Over the last 24 hours, he has been quite cooperative, not agitated and less impulsive. He had urinary retention, which was treated with repeat catheterization. Urecholine was started yesterday. The patient is currently voiding spontaneously. OBJECTIVE: VITAL SIGNS: This morning includes blood pressure 103/68, pulse is 87, respiratory rate is 20, temperature is 98 degrees Fahrenheit with maximum temperature of 98.6 degrees Fahrenheit within last 24 hours. Oxygen saturation currently is 100% on 21% trach collar. HEENT: Pupils are equal, round, reactive to light and accommodation. HEART: Reveals regular rate and rhythm. No murmurs or gallops auscultated. LUNGS: Clear to auscultation bilaterally. Breathing, regular and nonlabored. ABDOMEN: Soft, nontender, and nondistended. Bowel sounds in all 4 quadrants appear normoactive. He is tolerating tube feeds at goal and having normal bowel movements. EXTREMITIES: Reveal 2+ radial and pedal pulses bilaterally. NEUROLOGIC: Reveals no focal deficits present. LABORATORY FINDINGS: Includes a CBC with 10,600 white blood cells, hemoglobin and hematocrit stable at 9.6 and 29.3 respectively. Platelet count is 485,000. Metabolic profile; sodium 137, potassium is 4.1, chloride is 105, bicarb is 25, BUN 19, creatinine 0.67, glucose is 115, magnesium 2.0, phosphorus 3.9. IMPRESSION: 1. Post injury day #8 status post attempted suicide by jumping off the bridge. 2. Multiple facial, upper and lower extremity fractures. 3. Stable acute blood loss anemia. 4. Resolving acute severe metabolic encephalopathy. PLAN: 1. Increase activity per Physical and Occupational Therapy. 2. Discussed with OMFS who is agreeable with resuming full liquid diet orally. 3. We will therefore change tube feeds to run from 2200 hours to 0400 hours to allow the patient to be hungry during the day time to permit oral intake. 4. We will get a postvoid bladder scan to make sure that the patient is adequately emptying his urinary bladder. 5. The patient is certainly hemodynamically and neurologically stable to proceed with the repair of his left elbow fracture tomorrow per Orthopedic Surgery. 6. We will ask protective services social worker to begin discharge planning to neurorehabilitation with inpatient psych once the patient is stable for discharge postoperatively. 7. Tracheostomy tube was downsized to a size 6 and there seems to be not much room around the trach. Therefore, we will start Decadron for the next 24 hours and re-evaluate for a Passy Breckenridge valve placement. Above findings and plan has been discussed with the patient and his two parents at bedside. They indicated understanding of the information given. I have answered their questions. Job ID: [id number]
[2019-04-22] MEDS: Dexamethasone 4 mg/ml Vial SLOW IVP SCH ×2 (12:25→18:31)
[2019-04-22] MEDS: Morphine 4 MG/ML VIAL SLOW IVP PRN ×2 (15:57→21:00)
[2019-04-23] MEDS: clonazePAM 1 MG TAB PO SCH ×6 (00:55→20:38)
[2019-04-23] MEDS: Dexamethasone 4 mg/ml Vial SLOW IVP SCH (02:59)
[2019-04-23] MEDS: carBAMazepine 100 mg Chewable Tablet PO SCH ×4 (02:59→20:38)
[2019-04-23] MEDS: cloNIDine 0.1 MG TAB PO SCH ×3 (05:25→18:04)
[2019-04-23] MEDS: HYDROcodone/Acetaminophen 10/325 mg Tablet PO SCH ×3 (05:26→18:00)
[2019-04-23] MEDS: RisperDAL Oral Solution 1 MG/ML UDCUP PO SCH ×3 (06:15→21:13)
[2019-04-23] MEDS: Morphine 4 MG/ML VIAL SLOW IVP PRN ×2 (08:05→14:10)
[2019-04-23] MEDS: Ferrous Sulfate 325 MG TAB PO SCH ×2 (08:21→18:01)
[2019-04-23] MEDS: Ascorbic Acid 500 mg Chewable Tablet PO SCH ×2 (08:21→20:38)
[2019-04-23] MEDS: Famotidine/PF 20 mg/2ml Vial SLOW IVP SCH (08:22)
[2019-04-23] MEDS: Enoxaparin Sodium 30 MG/0.3 ML SYRINGE SC SCH ×2 (08:22→19:36)
[2019-04-23] MEDS: Polyethylene Glycol 3350 17 GM Packet PER TUBE SCH (08:23)
[2019-04-23] MEDS ORDERED: Fentanyl 100 MCG/2 ML VIAL ONE ×4 (08:59→13:04)
[2019-04-23] MEDS: HYDROcodone/Acetaminophen 10/325 mg Tablet PO PRN ×2 (15:09→20:39)
[2019-04-23] MEDS ORDERED: Ondansetron PF 4 MG/2 ML Vial ONE (15:12)
[2019-04-23] MEDS ORDERED: PROPOFOL 200 MG/20 ML VIAL ONE (15:12)
[2019-04-23] MEDS ORDERED: Dexamethasone 20 MG/5 ML VIAL ONE (15:12)
--- NOTE | 2019-04-23 15:32 | RAD ---
Radiograph left elbow 4 views: DATE: 04/23/2019 HISTORY: 18-year-old male status post acute traumatic fracture of elbow COMPARISON: 04/13/2019 FINDINGS: A total of 6 fluoroscopic spot images obtained with C-arm in the OR. Total of 4 screws fixating the l ateral epicondylar fracture. Total of 5 screws fixating the medial epicondylar fracture. Single screw fixating the olecranon fracture. Alignment has improved. No dislocation. Later, dorsal skin sta ples. IMPRESSION: Status post multiple screw fixations of comminuted, displaced, traumatic fractures of medial and late ral epicondyles and olecranon.
[2019-04-23] MEDS ORDERED: Ketorolac Tromethamine 30 MG/ML VIAL IVP SCH (18:00)
[2019-04-23] MEDS ORDERED: Fentanyl 100 MCG/2 ML VIAL SLOW IVP SCH (18:00)
[2019-04-23] MEDS: CEFAZOLIN 2 GM in Premix Bag 1 BAG IVPB SCH (18:03)
--- NOTE | 2019-04-23 19:19 | OP ---
DATE OF PROCEDURE: 04/13/2019 PREOPERATIVE DIAGNOSES: 1. Left C2 distal humerus fracture. 2. Left comminuted olecranon fracture. PROCEDURES PERFORMED: 1. Open reduction and internal fixation, distal humerus intercondylar and intra-articular humerus fracture. 2. Triceps advancement for repair. 3. With open reduction and internal fixation of the olecranon. 4. Ulnar transposition. HOSPITAL SUPERVISOR: Rusty Patterson PA-C ANESTHEIOLOGISTS: 1. David Ramos MD. 2. Paulo Dodson MD. ANESTHESIA: The patient had a trach and was intubated through his tracheostomy. ESTIMATED BLOOD LOSS: The patient had estimated blood loss of 120 mL. TOURNIQUET TIME: 120 minutes at 250 mmHg. ANTIBIOTICS: Ancef 2 g. IMPLANTS: The patient had nine 2.4 headless screws and #[address]. COMPLICATIONS: None. HISTORY OF PRESENT ILLNESS: Mr. Casey is a 18-year-old male status post fall from 30 feet onto his leg and elbow. We fixed his right foot and right knee. We are treating his left foot nonoperatively and nonweightbearing for 12 weeks as well as right lower extremity nonweightbearing for 12 weeks. The patient's left elbow had a comminuted intra-articular distal humerus fracture, although transverse mechanism at the articular surfaces. I discussed with the family as well as the olecranon fractures. The risks and benefits of open reduction and internal fixation of olecranon and distal humerus. Discussed risks and benefits of surgery include pain, scar, bleeding, infection, damage to vital structures, decreased range of motion, nonunion and malunion, heterotopic ossification, continued pain despite surgery intervention, loss of life or limb, the patient understood the risks and benefits of the procedure, like to proceed. DESCRIPTION OF PROCEDURE: Time-out was performed designating the patient's left upper extremity as the operative site based on site, consents, and marking. After time-out, the patient's posterior incision was made. He was placed in a lateral position with bony prominences well padded with arm over a pole. We had the tourniquet up and it was left for 120 minutes as we finished closing, we made an incision down through skin, down into the triceps. We elevated flaps medially and laterally, found the ulnar nerve, did trace up the ulnar nerve, released it to the fascia and exposed it completely. I came down on the patient's medial border as well as used the dorsal aspect under his triceps dorsally to find his lateral border came down through the anconeus flap and then through the patient's comminuted olecranon fracture, I exposed the distal humerus. There were two large pieces that consisted of the majority of the trochanter and capitellum. There were three other small articular pieces that blocked the motion and therefore, I did not leave those in place. I removed those at the epicondyles as best I can. Given this, it was difficult because I was not able to put a screw between the capitellar and trochlea distally. We even placed a K-wire because of the proximity in the subchondral bone. Therefore, I elected to put in a groupings of 2 to 4 headless screws to restore the capitellum and trochlea shortening it by likely a cm. I also used two screws in the capitellum segment reduced the other segment, two screws for the trochlear segments placed. The medial epicondyle a little bit higher for the shortening about a cm in the lateral upper condyle for a total of 8 to 9 screws in the distal humerus. We are happy with this and having good overall, I moved at the olecranon. I started first by using a two 4 headless screw to screw a small fragment of bone together to make a consistent shaft. Upon further evaluation, I noted that the olecranon was a small piece of comminution. Given that I shortened the joint, I was concerned. I first attempted trying to place the lag screw, the plate was sent on top of my anconeus interval would probably be devascularized tissue and I was concerned about healing. I then elected for triceps advancement helping with my joint reduction, I excised the tip of the olecranon, passed the Ethibond through the stitch and passed it in crisscrossing fashion to sew the triceps into position. He was making a flap to tag it distally and sew into its corner with #2 Ethibond that ran up and down sewed the fascia. I took final pictures showing the good reduction in x-ray. No obvious loose bodies. I closed all the fracture up. I closed the fascia with #1 Ethibond. I transposed the ulnar nerve anteriorly and closed the triceps to remnants fascia in the upper condyle. I felt like overall, had a good overall closure. The elbow had a stable arc of motion. I was able to keep it reduced on AP and lateral gaps after closure of the triceps and closed subcu with 2-0 and rakel. The patient was placed in neutral in a posterior sugar-tong splint. The patient will stay in the splint for 2 weeks. He will then be transition to a cast when he comes back to see me in clinic. The patient will remain nonweightbearing in the left upper extremity likely for 12 weeks and his bilateral lower extremities for 12 weeks and he was transition to residential versus rehab. Job ID: [id number]
[2019-04-24] MEDS: CEFAZOLIN 2 GM in Premix Bag 1 BAG IVPB SCH (00:44)
[2019-04-24] MEDS: cloNIDine 0.1 MG TAB PO SCH ×4 (00:45→18:04)
[2019-04-24] MEDS: HYDROcodone/Acetaminophen 10/325 mg Tablet PO SCH ×4 (00:45→18:04)
[2019-04-24] MEDS: clonazePAM 1 MG TAB PO SCH ×6 (00:45→20:52)
[2019-04-24] MEDS: carBAMazepine 100 mg Chewable Tablet PO SCH ×4 (04:11→20:52)
[2019-04-24] MEDS: Morphine 4 MG/ML VIAL SLOW IVP PRN ×3 (04:11→15:38)
[2019-04-24 04:39] LABS: Hemoglobin 8.2 g/dL (14.0-18.0); Mean Corpuscular HGB CONC 32.9 g/dL (32.0-36.0); Mean Corpuscular Hemoglobin 31.1 pg (25.0-35.0); Mean Corpuscular Volume 94.7 fL (78.0-98.0); Mean Platelet Volume 7.1 fL (7.4-10.4); Platelet Count 505 thou/uL (130-400); Red Blood Cell (RBC) Count 2.63 mill/uL (4.00-5.20); White Blood Cell (WBC) Count 13.7 thou/uL (4.8-10.8)
[2019-04-24] MEDS: RisperDAL Oral Solution 1 MG/ML UDCUP PO SCH ×3 (05:06→21:05)
[2019-04-24] MEDS: HYDROcodone/Acetaminophen 10/325 mg Tablet PO PRN (09:27)
[2019-04-24] MEDS: Ferrous Sulfate 325 MG TAB PO SCH ×2 (09:29→18:04)
[2019-04-24] MEDS: Polyethylene Glycol 3350 17 GM Packet PER TUBE SCH (09:30)
[2019-04-24] MEDS: Enoxaparin Sodium 30 MG/0.3 ML SYRINGE SC SCH ×2 (09:30→20:51)
[2019-04-24] MEDS: Ascorbic Acid 500 mg Chewable Tablet PO SCH ×2 (09:30→20:52)
[2019-04-24] MEDS ORDERED: Gabapentin 100 MG CAP PO SCH (10:30)
[2019-04-24] MEDS: Senokot S 8.6-50 MG TAB PO SCH ×2 (12:22→20:52)
[2019-04-24 12:34] VITALS: BMI 21.9
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
[2019-04-24] MEDS: Gabapentin 300 MG CAP PO SCH (20:52)
[2019-04-25] MEDS: cloNIDine 0.1 MG TAB PO SCH ×4 (00:42→17:20)
[2019-04-25] MEDS: HYDROcodone/Acetaminophen 10/325 mg Tablet PO SCH ×4 (00:43→17:36)
[2019-04-25] MEDS: clonazePAM 1 MG TAB PO SCH ×6 (00:44→21:57)
[2019-04-25] MEDS: carBAMazepine 100 mg Chewable Tablet PO SCH ×4 (03:07→21:57)
[2019-04-25] MEDS: RisperDAL Oral Solution 1 MG/ML UDCUP PO SCH ×3 (05:09→21:57)
[2019-04-25 05:42] LABS: #Eosinphils 0.2 thou/uL (0.0-0.7); #Lymphocytes 1.3 thou/uL (1.20-3.40); #Monocytes 1.8 thou/uL (0.11-0.59); #Neutrophils 12.7 thou/uL (1.40-6.50); %Basophils 0.3 % (0.0-1.0); %Eosinophils 1.2 % (0.0-10.0); %Lymphocytes 8.2 % (28.0-48.0); %Monocytes 11.4 % (0.0-4.0); %Neutrophils 78.9 % (31.0-61.0); Hemoglobin 8.7 g/dL (14.0-18.0); Mean Corpuscular HGB CONC 32.1 g/dL (32.0-36.0); Mean Corpuscular Hemoglobin 30.9 pg (25.0-35.0); Mean Corpuscular Volume 96.2 fL (78.0-98.0); Mean Platelet Volume 7.5 fL (7.4-10.4); Platelet Count 578 thou/uL (130-400); RBC Distribution Width 14.1 % (11.5-14.5); Red Blood Cell (RBC) Count 2.82 mill/uL (4.00-5.20); White Blood Cell (WBC) Count 16.1 thou/uL (4.8-10.8)
[2019-04-25] MEDS: Enoxaparin Sodium 30 MG/0.3 ML SYRINGE SC SCH ×2 (09:06→21:57)
[2019-04-25] MEDS: Gabapentin 300 MG CAP PO SCH ×3 (09:06→21:57)
[2019-04-25] MEDS: Ferrous Sulfate 325 MG TAB PO SCH ×2 (09:06→17:21)
[2019-04-25] MEDS: Polyethylene Glycol 3350 17 GM Packet PER TUBE SCH (09:06)
[2019-04-25] MEDS: Ascorbic Acid 500 mg Chewable Tablet PO SCH ×2 (09:07→21:57)
[2019-04-25] MEDS: Senokot S 8.6-50 MG TAB PO SCH ×2 (09:07→21:56)
[2019-04-25 09:27] LABS: Anion Gap 11 mmol/L (10-20); BUN (Urea Nitrogen) 15 mg/dL (8.4-21.0); Calc. Creatinine Clearance 166 mL/min (70-130); Calcium 9.7 mg/dL (7.8-10.44); Carbon Dioxide 27 mmol/L (22-29); Chloride 101 mmol/L (98-107); Estimated GFR-MDRD Greater than 90; Glucose 147 mg/dL (70-105); Magnesium 1.8 mg/dL (1.7-2.2); Phosphorus 2.5 mg/dL (2.3-4.7); Potassium 3.9 mmol/L (3.5-5.1); Sodium 135 mmol/L (136-145)
[2019-04-25 10:39] LABS: Bacteria/HPF None Seen HPF (None Seen); Bilirubin Negative (Negative); Blood, Urine Negative (Negative); Clarity Turbid (Clear); Glucose, Urine (Dipstick) Normal (Negative); Leukocyte Negative Leu/uL (Negative); Mucous/LPF Rare LPF (<2+); Nitrite Negative (Negative); Protein, Urine (Dipstick) 20 mg/dL (Neg-Trace); RBC/HPF None Seen HPF (0-3); Squamous Epithelial None Seen HPF (0-3); Urobilinogen 6 mg/dL (Less than 2); WBC/HPF None Seen HPF (0-3)
--- NOTE | 2019-04-25 10:40 | RAD ---
CHEST 1 VIEW: INDICATION: Elevated white blood count. COMPARISON: Prior exam dated 04/20/2019. FINDINGS: Left subclavian central venous catheter and tracheostomy tube are unchanged. Lungs are clear. Heart size is normal. No pneumothorax is evident. No acute osseous abnormality is noted. IMPRESSION: Stable tubes and lines. No acute cardiopulmonary abnormality. POS: CET
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
[2019-04-25] MEDS: HYDROcodone/Acetaminophen 10/325 mg Tablet PO PRN (17:21)
[2019-04-26] MEDS: HYDROcodone/Acetaminophen 10/325 mg Tablet PO SCH ×3 (00:21→13:13)
[2019-04-26] MEDS: clonazePAM 1 MG TAB PO SCH ×4 (00:22→13:13)
[2019-04-26] MEDS: cloNIDine 0.1 MG TAB PO SCH ×2 (00:22→05:20)
[2019-04-26] MEDS: carBAMazepine 100 mg Chewable Tablet PO SCH ×2 (02:23→09:53)
[2019-04-26 05:13] LABS: #Basophils 0.1 thou/uL (0.0-0.2); #Eosinphils 0.3 thou/uL (0.0-0.7); #Lymphocytes 1.5 thou/uL (1.20-3.40); #Monocytes 1.3 thou/uL (0.11-0.59); #Neutrophils 9.2 thou/uL (1.40-6.50); %Basophils 0.5 % (0.0-1.0); %Eosinophils 2.3 % (0.0-10.0); %Lymphocytes 11.8 % (28.0-48.0); %Monocytes 10.4 % (0.0-4.0); %Neutrophils 74.9 % (31.0-61.0); Hemoglobin 8.6 g/dL (14.0-18.0); Mean Corpuscular HGB CONC 31.6 g/dL (32.0-36.0); Mean Corpuscular Hemoglobin 30.7 pg (25.0-35.0); Mean Corpuscular Volume 97.1 fL (78.0-98.0); Mean Platelet Volume 7.3 fL (7.4-10.4); Platelet Count 582 thou/uL (130-400); RBC Distribution Width 14.1 % (11.5-14.5); White Blood Cell (WBC) Count 12.2 thou/uL (4.8-10.8)
[2019-04-26] MEDS: RisperDAL Oral Solution 1 MG/ML UDCUP PO SCH (05:21)
[2019-04-26 05:42] LABS: Anion Gap 10 mmol/L (10-20); BUN (Urea Nitrogen) 15 mg/dL (8.4-21.0); Calc. Creatinine Clearance 201 mL/min (70-130); Calcium 9.1 mg/dL (7.8-10.44); Carbon Dioxide 28 mmol/L (22-29); Chloride 101 mmol/L (98-107); Estimated GFR-MDRD Greater than 90; Glucose 91 mg/dL (70-105); Phosphorus 4.1 mg/dL (2.3-4.7); Potassium 4.1 mmol/L (3.5-5.1); Sodium 135 mmol/L (136-145)
[2019-04-26] MEDS ORDERED: Tamsulosin HCl 0.4 MG CAP PO SCH (09:00)
[2019-04-26] MEDS: Enoxaparin Sodium 30 MG/0.3 ML SYRINGE SC SCH (09:49)
[2019-04-26] MEDS: Senokot S 8.6-50 MG TAB PO SCH (09:49)
[2019-04-26] MEDS: Polyethylene Glycol 3350 17 GM Packet PER TUBE SCH (09:49)
[2019-04-26] MEDS: Ferrous Sulfate 325 MG TAB PO SCH (09:49)
[2019-04-26] MEDS: Ascorbic Acid 500 mg Chewable Tablet PO SCH (09:50)
[2019-04-26] MEDS: Gabapentin 300 MG CAP PO SCH (09:50)
[2019-04-26 12:01] VITALS: BP 106/63; TEMP 98.8
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
== END 2019-04-26 13:30 | DRG 3 ==
LOC: ERS 20:29 → CCU 23:53 → SURG A 04-21 20:05 → SURG B 04-22 15:26 → SURG A 04-22 15:29
PROVIDERS: ADMIT Surgery; ATTEND Surgery
PROC: 0PSG04Z Reposition Left Humeral Shaft with Internal Fixation Device, Open Approach (ICD-10-PCS; 2019-04-13)
PROC: 0PSL04Z Reposition Left Ulna with Internal Fixation Device, Open Approach (ICD-10-PCS; 2019-04-13)
PROC: 5A1945Z Respiratory Ventilation, 24-96 Consecutive Hours (ICD-10-PCS; 2019-04-13)
PROC: 0BH17EZ Insertion of Endotracheal Airway into Trachea, Via Natural or Artificial Opening (ICD-10-PCS; 2019-04-13)
PROC: 0W9930Z Drainage of Right Pleural Cavity with Drainage Device, Percutaneous Approach (ICD-10-PCS; 2019-04-13)
PROC: 05H633Z Insertion of Infusion Device into Left Subclavian Vein, Percutaneous Approach (ICD-10-PCS; 2019-04-13)
PROC: 30233K1 Transfusion of Nonautologous Frozen Plasma into Peripheral Vein, Percutaneous Approach (ICD-10-PCS; 2019-04-13)
PROC: 30233N1 Transfusion of Nonautologous Red Blood Cells into Peripheral Vein, Percutaneous Approach (ICD-10-PCS; 2019-04-13)
PROC: 0B113F4 Bypass Trachea to Cutaneous with Tracheostomy Device, Percutaneous Approach (ICD-10-PCS; 2019-04-14)
PROC: 0DH63UZ Insertion of Feeding Device into Stomach, Percutaneous Approach (ICD-10-PCS; 2019-04-14)
PROC: 3E0G76Z Introduction of Nutritional Substance into Upper GI, Via Natural or Artificial Opening (ICD-10-PCS; 2019-04-14)
PROC: 0QSB04Z Reposition Right Lower Femur with Internal Fixation Device, Open Approach (ICD-10-PCS; principal; 2019-04-15)
PROC: 0QSN04Z Reposition Right Metatarsal with Internal Fixation Device, Open Approach (ICD-10-PCS; 2019-04-15)
PROC: 0C950ZZ Drainage of Upper Gingiva, Open Approach (ICD-10-PCS; 2019-04-15)
PROC: 0CQ1XZZ Repair Lower Lip, External Approach (ICD-10-PCS; 2019-04-15)
PROC: 0HQ1XZZ Repair Face Skin, External Approach (ICD-10-PCS; 2019-04-15)
PROC: 0NSVXZZ Reposition Left Mandible, External Approach (ICD-10-PCS; 2019-04-15)
PROC: 0NSTXZZ Reposition Right Mandible, External Approach (ICD-10-PCS; 2019-04-15)
PROC: 0QSNXZZ Reposition Right Metatarsal, External Approach (ICD-10-PCS; 2019-04-15)
DX: S52.022A Displaced fracture of olecranon process without intraarticular extension of left ulna, initial encounter for closed fracture (principal); R40.2223 Coma scale, best verbal response, incomprehensible words, at hospital admission; J96.01 Acute respiratory failure with hypoxia; J96.02 Acute respiratory failure with hypercapnia; G93.41 Metabolic encephalopathy; S72.411A Displaced unspecified condyle fracture of lower end of right femur, initial encounter for closed fracture; S27.0XXA Traumatic pneumothorax, initial encounter; S02.609B Fracture of mandible, unspecified, initial encounter for open fracture; S02.401A Maxillary fracture, unspecified side, initial encounter for closed fracture; S42.402A Unspecified fracture of lower end of left humerus, initial encounter for closed fracture; S82.141A Displaced bicondylar fracture of right tibia, initial encounter for closed fracture; D62 Acute posthemorrhagic anemia; E87.2 Acidosis; W13.1XXA Fall from, out of or through bridge, initial encounter; Y92.9 Unspecified place or not applicable; R40.2353 Coma scale, best motor response, localizes pain, at hospital admission; R40.2143 Coma scale, eyes open, spontaneous, at hospital admission; S02.5XXA Fracture of tooth (traumatic), initial encounter for closed fracture; E83.51 Hypocalcemia; S92.311A Displaced fracture of first metatarsal bone, right foot, initial encounter for closed fracture; S92.321A Displaced fracture of second metatarsal bone, right foot, initial encounter for closed fracture; S92.331A Displaced fracture of third metatarsal bone, right foot, initial encounter for closed fracture; S92.322A Displaced fracture of second metatarsal bone, left foot, initial encounter for closed fracture; S92.332A Displaced fracture of third metatarsal bone, left foot, initial encounter for closed fracture; S92.342A Displaced fracture of fourth metatarsal bone, left foot, initial encounter for closed fracture; S92.352A Displaced fracture of fifth metatarsal bone, left foot, initial encounter for closed fracture; S92.212A Displaced fracture of cuboid bone of left foot, initial encounter for closed fracture; S92.252A Displaced fracture of navicular [scaphoid] of left foot, initial encounter for closed fracture; F32.9 Major depressive disorder, single episode, unspecified; E87.6 Hypokalemia; E83.42 Hypomagnesemia; E83.39 Other disorders of phosphorus metabolism
CPT/HCPCS: 31500; 32554; 36415; 36430; 36556; 51702; 70450; 70486; 70496; 70498; 71045; 71260; 72125; 72170; 74177; 76000; 76377; 80048; 80053; 80306; 80307; 81001; 81003; 81015; 82550; 82805; 83605; 83735; 84100; 84443; 84484; 85025; 85027; 85610; 85730; 86850; 86900; 86901; 87040; 87070; 87086; 87205; 90471; 93005; 94002; 94003; 94640; 96365; 96366; 96368; 96374; 96376; C1713; C1769; G0390; J0131; J0690; J1100; J1200; J1630; J1650; J1885; J2001; J2060; J2250; J2270; J2405; J2543; J2704; J3010; J3490; J7050; J7070; J7620; L4386; P9016; P9035; P9045; P9047; P9059; Q0163; Q9967; S0028

== ENCOUNTER 2019-05-12 22:42 | Emergency (ER) | payer BC ==
[2019-05-12] MEDS ORDERED: Fentanyl 100 MCG/2 ML VIAL ONE (23:14)
[2019-05-12] MEDS ORDERED: Ketorolac Tromethamine 30 MG/ML VIAL ONE (23:14)
[2019-05-12 23:52] LABS: #Basophils 0.1 thou/uL (0.0-0.2); #Eosinphils 0.3 thou/uL (0.0-0.7); #Lymphocytes 1.4 thou/uL (1.20-3.40); #Neutrophils 11.8 thou/uL (1.40-6.50); %Basophils 0.5 % (0.0-1.0); %Eosinophils 1.8 % (0.0-10.0); %Lymphocytes 9.6 % (28.0-48.0); %Monocytes 6.7 % (0.0-4.0); %Neutrophils 81.4 % (31.0-61.0); Hemoglobin 11.8 g/dL (14.0-18.0); Mean Corpuscular HGB CONC 33.3 g/dL (32.0-36.0); Mean Corpuscular Hemoglobin 31.9 pg (25.0-35.0); Mean Corpuscular Volume 95.7 fL (78.0-98.0); Mean Platelet Volume 8.2 fL (7.4-10.4); Platelet Count 317 thou/uL (130-400); RBC Distribution Width 13.1 % (11.5-14.5); White Blood Cell (WBC) Count 14.4 thou/uL (4.8-10.8)
[2019-05-13 00:07] LABS: Bilirubin Small (Negative); Blood, Urine Large (Negative); Glucose, Urine (Dipstick) Negative (Negative); Leukocyte Small (Negative); Nitrite Negative (Negative); Protein, Urine (Dipstick) > or equal to 300 mg/dL (Neg-Trace)
[2019-05-13 00:08] LABS: ALT (SGPT) 22 U/L (8-55); AST (SGOT) 20 U/L (10-45); Albumin 3.5 g/dL (3.5-5.0); Alkaline Phosphatase 202 U/L (Less than 750); Anion Gap 12 mmol/L (10-20); BUN (Urea Nitrogen) 14 mg/dL (8.4-21.0); Bilirubin, Total 0.3 mg/dL (0.2-1.2); Calc. Creatinine Clearance 0 mL/min (70-130); Calcium 9.3 mg/dL (7.8-10.44); Carbon Dioxide 26 mmol/L (22-29); Chloride 103 mmol/L (98-107); Estimated GFR-MDRD Greater than 90; Globulin 3.3 g/dL (2.4-3.5); Glucose 90 mg/dL (70-105); Lipase 12 U/L (8-78); Potassium 3.5 mmol/L (3.5-5.1); Protein, Total 6.8 g/dL (6.0-8.3); Sodium 137 mmol/L (136-145)
[2019-05-13 00:14] LABS: WBC/HPF Greater Than 50 HPF (0-3)
[2019-05-13 00:15] LABS: Bacteria/HPF None Seen HPF (None Seen); Clarity Turbid (Clear); Epithelial Cast None Seen LPF (None Seen); Red Blood Cell Cast None Seen LPF (None Seen); Renal Epithelial None Seen HPF (None Seen); Squamous Epithelial None Seen HPF (0-3); Transitional Epithelial None Seen HPF (None Seen); Trichomonas/HPF None Seen HPF (None Seen); White Blood Cell Cast None Seen LPF (None Seen); Yeast-Budding None Seen HPF (None Seen); Yeast-Hyphae None Seen HPF (None Seen)
[2019-05-13 00:16] LABS: Broad Cast None Seen LPF (None Seen); Calcium Oxalate Crystals None Seen HPF (None Seen); Cellular Cast None Seen LPF (None Seen); Fatty Cast None Seen LPF (None Seen); Other Casts None Seen LPF (None Seen); Triple Phosphate Crystal None Seen HPF (None Seen); Unclassified Crystals None Seen HPF (None Seen); Waxy Cast None Seen LPF (None Seen)
[2019-05-13] MEDS ORDERED: Doxycycline Monohydrate 25 MG/5 ML PO SCH (00:30)
--- NOTE | 2019-05-13 07:38 | ULT ---
PRELIMINARY REPORT/[facility]/EMERGENCY AFTER HOURS PROCEDURE: EXAM: US Scrotum and US Duplex Artery and Vein, Scrotum, Complete EXAM DATE/TIME: 05/12/2019 11:37 PM CLINICAL HISTORY: 18 years old, male; Other: Lt testicular pain TECHNIQUE: Imaging protocol: Real-time ultrasound of the scrotum. Real-time duplex ultrasound scan of the arterial and venous flow of the scrotum with B-mode, color Doppler flow and spectral waveform analysis. Complete exam. COMPARISON: No relevant prior studies available. FINDINGS: Ultrasound was performed for evaluation of pain. Duplex ultrasound scan with color Doppler flow and spectral waveform analysis was also performed for evaluation of testicular blood flow and to rule out torsion. Right Testicle: No acute findings. No mass. Normal duplex of the testicle. No evidence of torsion. Left Testicle: No acute findings. No mass. Normal duplex of the testicle. No evidence of torsion. Epididymides: Enlarged heterogeneous and hyperemic left epididymis likely representing epididymitis. Unremarkable right epididymis. Scrotum: Small left hydrocele. IMPRESSION: Left epididymitis. No testicular mass or torsion Thank you for allowing us to participate in the care of your patient. Dictated and Authenticated by: Kalen Rose MD 05/13/2019 12:30 AM Central Time ([place] & [place]) FINAL REPORT BILATERAL TESTICULAR ULTRASOUND WITH GRAYSCALE AND COLOR FLOW AND SPECTRAL DOPPLER IMAGING: FINDINGS/IMPRESSION: I agree with the preliminary report given by Dr. Kalen Rose of [facility]. Transcribed Date/Time: 05/13/2019 7:41 AM
== END 2019-05-13 00:45 | disposition home or self-care (01) ==
LOC: ERS 22:42
DX: N45.1 Epididymitis (principal); F41.9 Anxiety disorder, unspecified; F32.9 Major depressive disorder, single episode, unspecified; Z79.899 Other long term (current) drug therapy; Z79.01 Long term (current) use of anticoagulants
CPT/HCPCS: 36415; 76870; 80053; 81003; 81015; 83690; 85025; 87077; 87086; 87186; 93976; 96374; 96375; J1885; J3010

== ENCOUNTER 2019-06-26 10:34 | Emergency (ER) | payer BC ==
[2019-06-26 10:57] LABS: #Eosinphils 0.1 thou/uL (0.0-0.7); #Lymphocytes 0.9 thou/uL (1.20-3.40); #Monocytes 0.4 thou/uL (0.11-0.59); #Neutrophils 13.9 thou/uL (1.40-6.50); %Basophils 0.1 % (0.0-1.0); %Eosinophils 0.8 % (0.0-10.0); %Monocytes 2.7 % (0.0-4.0); %Neutrophils 90.5 % (31.0-61.0); Hemoglobin 13.4 g/dL (14.0-18.0); Mean Corpuscular HGB CONC 33.5 g/dL (32.0-36.0); Mean Corpuscular Hemoglobin 29.9 pg (25.0-35.0); Mean Corpuscular Volume 89.5 fL (78.0-98.0); Mean Platelet Volume 7.9 fL (7.4-10.4); Platelet Count 292 thou/uL (130-400); RBC Distribution Width 11.4 % (11.5-14.5); Red Blood Cell (RBC) Count 4.48 mill/uL (4.00-5.20); White Blood Cell (WBC) Count 15.4 thou/uL (4.8-10.8)
[2019-06-26 11:14] LABS: Bacteria/HPF None Seen HPF (None Seen); Bilirubin Negative (Negative); Blood, Urine Negative (Negative); Clarity Clear (Clear); Glucose, Urine (Dipstick) Normal (Negative); Leukocyte 25 Leu/uL (Negative); Nitrite Negative (Negative); Protein, Urine (Dipstick) Negative (Neg-Trace); RBC/HPF 0-3 HPF (0-3); Squamous Epithelial 0-3 HPF (0-3)
[2019-06-26 11:15] LABS: ALT (SGPT) 7 U/L (8-55); AST (SGOT) 17 U/L (5-34); Albumin 3.9 g/dL (3.5-5.0); Alkaline Phosphatase 99 U/L (Less than 750); Anion Gap 10 mmol/L (10-20); BUN (Urea Nitrogen) 7 mg/dL (8.9-20.6); Bilirubin, Total 0.2 mg/dL (0.2-1.2); Calc. Creatinine Clearance 0 mL/min (70-130); Calcium 9.8 mg/dL (7.8-10.44); Carbon Dioxide 29 mmol/L (22-29); Chloride 97 mmol/L (98-107); Estimated GFR-MDRD Greater than 90; Globulin 3.6 g/dL (2.4-3.5); Glucose 84 mg/dL (70-105); Potassium 4.3 mmol/L (3.5-5.1); Protein, Total 7.5 g/dL (6.0-8.3); Sodium 132 mmol/L (136-145)
[2019-06-26] MEDS ORDERED: Lorazepam 2 MG/ML VIAL ONE (11:41)
--- NOTE | 2019-06-26 12:47 | RAD ---
FRONTAL VIEW CHEST: COMPARISON: 04/25/2019. INDICATION: Fever, hemorrhage. FINDINGS: Compared to prior exam of 04/25/2019, there has been removal of prior tracheostomy and left subclavian venous catheter. There is interstitial prominence of the lungs. No lobar consolidation or effusion. Cardiac silhouette is accentuated by portable technique. IMPRESSION: Interstitial prominence of the lungs which could be on the basis of atypical infectious/inflammatory process given the setting of fever. Followup imaging with dedicated 2-view chest may be obtained to document resolution. POS: C
[2019-06-26] MEDS ORDERED: cefTRIAXone\\ROCEPHIN 2 GM VIAL ONE (12:53)
== END 2019-06-26 13:42 | disposition home or self-care (01) ==
LOC: ERS 10:34
DX: J18.9 Pneumonia, unspecified organism (principal); F43.10 Post-traumatic stress disorder, unspecified; F41.9 Anxiety disorder, unspecified; F32.9 Major depressive disorder, single episode, unspecified; Z79.899 Other long term (current) drug therapy; Z79.01 Long term (current) use of anticoagulants
CPT/HCPCS: 36415; 71045; 80053; 81003; 81015; 83605; 85025; 87040; 87086; 96361; 96365; 96375; J0696; J2060

== ENCOUNTER 2019-06-27 14:15 | Emergency (ER) | payer BC ==
[~2019-06-27 14:15] MED LIST changes: +ISOVUE-370 76%-LOCM 1 ML ONE; -Iopamidol 370 76% 100 ML VIAL ONE; -Ketamine 50 MG/ML (10ML VIAL) ONE; -Sodium Bicarb 50 MEQ/50 ML Abboject 8.4% SYRINGE ONE
[2019-06-27 15:31] LABS: Bilirubin Negative (Negative); Blood, Urine Negative (Negative); Clarity Clear (Clear); Glucose, Urine (Dipstick) Normal (Negative); Leukocyte Negative Leu/uL (Negative); Nitrite Negative (Negative); Protein, Urine (Dipstick) Negative (Neg-Trace); Urobilinogen Normal mg/dL (Less than 2)
[2019-06-27 15:43] LABS: #Eosinphils 0.1 thou/uL (0.0-0.7); #Lymphocytes 1.3 thou/uL (1.20-3.40); #Monocytes 0.4 thou/uL (0.11-0.59); #Neutrophils 17.8 thou/uL (1.40-6.50); %Basophils 0.1 % (0.0-1.0); %Eosinophils 0.4 % (0.0-10.0); %Lymphocytes 6.6 % (28.0-48.0); %Neutrophils 90.9 % (31.0-61.0); Hemoglobin 13.6 g/dL (14.0-18.0); Mean Corpuscular HGB CONC 33.5 g/dL (32.0-36.0); Mean Corpuscular Hemoglobin 30.2 pg (25.0-35.0); Mean Corpuscular Volume 90.2 fL (78.0-98.0); Mean Platelet Volume 7.6 fL (7.4-10.4); Platelet Count 374 thou/uL (130-400); RBC Distribution Width 11.7 % (11.5-14.5); Red Blood Cell (RBC) Count 4.49 mill/uL (4.00-5.20); White Blood Cell (WBC) Count 19.6 thou/uL (4.8-10.8)
[2019-06-27 16:04] LABS: ALT (SGPT) 7 U/L (8-55); AST (SGOT) 18 U/L (5-34); Albumin 3.9 g/dL (3.5-5.0); Alkaline Phosphatase 105 U/L (Less than 750); Anion Gap 14 mmol/L (10-20); BUN (Urea Nitrogen) 5 mg/dL (8.9-20.6); Bilirubin, Total 0.3 mg/dL (0.2-1.2); Calc. Creatinine Clearance 0 mL/min (70-130); Calcium 9.7 mg/dL (7.8-10.44); Carbon Dioxide 26 mmol/L (22-29); Chloride 100 mmol/L (98-107); Estimated GFR-MDRD Greater than 90; Globulin 3.8 g/dL (2.4-3.5); Glucose 104 mg/dL (70-105); Lipase 14 U/L (8-78); Potassium 3.8 mmol/L (3.5-5.1); Protein, Total 7.7 g/dL (6.0-8.3); Sodium 136 mmol/L (136-145)
--- NOTE | 2019-06-27 16:20 | RAD ---
1 VIEW CHEST: Date: 06/27/19 COMPARISON: 06/26/19. HISTORY: Fever. FINDINGS: Normal cardiac silhouette. Pulmonary vessels and hilum are normal. Costophrenic angles are clear. Increased interstitial opacities in the lung parenchyma, unchanged. Correlate for infiltrate. IMPRESSION: Increased interstitial opacities which may represent infiltrate. POS: TPC
[2019-06-27] MEDS ORDERED: Acetaminophen/Codeine 30-300mg Tablet ONE (17:29)
[2019-06-27] MEDS ORDERED: Ondansetron PF 4 MG/2 ML Vial ONE (18:05)
[2019-06-27] MEDS ORDERED: Morphine 4 MG/ML VIAL ONE (18:05)
--- NOTE | 2019-06-27 21:04 | CT ---
CT ABDOMEN WITH CONTRAST CT PELVIS WITH CONTRAST: DATE: 06/27/2019 HISTORY: 19-year-old male with periumbilical abdominal pain, fever, chills, nausea, and productive cough. COMPARISON: 04/13/2019 TECHNIQUE: IV injection of iodinated contrast media: administered. Oral contrast media:Administered FINDINGS: There are extensive bilateral lower lobe and right middle lobe infiltrates, in a pattern that is diff erent from the previous CT, suspicious for pneumonia given the history of fever. Previously demonstrated splenic lacerations have healed. No significant abnormality identified involv ing bilateral kidneys, spleen, abdominal aorta, adrenals, pancreas, or liver. Gallbladder is mildly distended but has no mural thickening or pericholecystic fluid. No small bowel dilation. Distended urinary bladder has normal, thin mckeon. Not unusual for this age group, there is almost complete absence of visceral fat, which makes it diff icult to evaluate for pneumoperitoneum, and difficult to visualize the appendix. The oral contrast material is within left-sided small bowel loops, and has not reached the colon. Little or no free flu id identified, although lack of visceral fat in makes it difficult to detect small amounts of free fluid. IMPRESSION: 1) bilateral pulmonary infiltrates suspicious for bilateral pneumonia. 2) appendix not identified.
== END 2019-06-27 17:27 | disposition home or self-care (01) ==
LOC: ERS 14:15
DX: J18.9 Pneumonia, unspecified organism (principal); R10.33 Periumbilical pain; F43.10 Post-traumatic stress disorder, unspecified; F41.9 Anxiety disorder, unspecified; F32.9 Major depressive disorder, single episode, unspecified; Z79.899 Other long term (current) drug therapy
CPT/HCPCS: 36415; 71045; 74177; 80053; 81003; 83690; 85025; 87804; 96372; 96374; 96375; 96376; J0500; J2270; J2405

== ENCOUNTER 2019-07-01 20:55 | Inpatient (IN) | payer BC ==
[2019-07-01] MEDS ORDERED: Acetaminophen 500 MG TAB ONE (21:21)
[2019-07-01 21:38] LABS: Hemoglobin 13.6 g/dL (14.0-18.0); Mean Corpuscular HGB CONC 33.2 g/dL (32.0-36.0); Mean Corpuscular Hemoglobin 29.5 pg (25.0-35.0); Mean Corpuscular Volume 88.8 fL (78.0-98.0); Mean Platelet Volume 7.1 fL (7.4-10.4); Platelet Count 459 thou/uL (130-400); RBC Distribution Width 12.1 % (11.5-14.5); Red Blood Cell (RBC) Count 4.61 mill/uL (4.00-5.20); White Blood Cell (WBC) Count 14.6 thou/uL (4.8-10.8)
[2019-07-01 21:49] LABS: ALT (SGPT) 10 U/L (8-55); AST (SGOT) 33 U/L (5-34); Albumin 3.6 g/dL (3.5-5.0); Alkaline Phosphatase 99 U/L (Less than 750); Anion Gap 10 mmol/L (10-20); BUN (Urea Nitrogen) 11 mg/dL (8.9-20.6); Bilirubin, Total 0.2 mg/dL (0.2-1.2); Calc. Creatinine Clearance 0 mL/min (70-130); Calcium 9.3 mg/dL (7.8-10.44); Carbon Dioxide 29 mmol/L (22-29); Chloride 92 mmol/L (98-107); Estimated GFR-MDRD Greater than 90; Globulin 4.1 g/dL (2.4-3.5); Glucose 100 mg/dL (70-105); Potassium 4.5 mmol/L (3.5-5.1); Protein, Total 7.7 g/dL (6.0-8.3); Sodium 126 mmol/L (136-145)
[2019-07-01 21:52] LABS: Band 4 % (5-11); Eosinophils 1 % (0-10); Lymphocytes 6 % (28-48); MDiff Complete? YES; Monocytes 2 % (0-4); Neutrophil 87 % (31-61)
--- NOTE | 2019-07-01 21:54 | RAD ---
EXAM: Single view of the chest HISTORY: Cough and pneumonia COMPARISON: 06/27/2019 FINDINGS: Single view of the chest shows a normal sized cardiomediastinal silhouette. Increased inte rstitial opacities are again seen and unchanged. There is no evidence of consolidation, mass, or pleural effusion. The bones are unremarkable. IMPRESSION: Stable exam
--- NOTE | 2019-07-01 22:43 | CT ---
EXAM: CT of the chest without contrast HISTORY: Fever and cough COMPARISON: Chest x-ray 07/01/2019 TECHNIQUE: Multiple contiguous axial images were obtained in a CT the chest without contrast. Coronal and sagittal reformats were performed. FINDINGS: HEART: Normal in size without focal cardiac abnormality MEDIASTINUM: No hilar or mediastinal lymphadenopathy. Evaluation of the mediastinum is limited withou t IV contrast. LUNGS: Multifocal infiltrates are seen scattered throughout the lungs. No suspicious pulmonary mass i s seen. PLEURAL SPACE: No pneumothorax or pleural effusion. CHEST WALL SOFT TISSUES: Unremarkable OSSEOUS STRUCTURES: Unremarkable VISUALIZED SUBDIAPHRAGMATIC STRUCTURES: Unremarkable IMPRESSION: Multifocal pneumonia
--- NOTE | 2019-07-01 22:46 | CT ---
CT Abdomen Pelvis W Con: 07/01/2019 12:00 AM CLINICAL INFORMATION: Fever COMPARISON: None. TECHNIQUE: Multiple contiguous axial images were obtained and a CT of the abdomen and pelvis with IV contrast. C oronal and sagittal reformats were performed. FINDINGS: Lower Chest: See dedicated chest CT Abdomen: Liver: within normal limits. Bile Ducts: Normal caliber. Gallbladder: No calcified gallstones. Normal caliber wall. Pancreas: within normal limits. Spleen: within normal limits. Adrenals: within normal limits. Kidneys: within normal limits. Pelvis: Reproductive Organs: No pelvic masses. Ureters: within normal limits. Bladder: within normal limits. Peritoneum: No ascites or free air, no fluid collection. Bowel: Normal caliber. Normal appendix. Mesentery and Retroperitoneum: No enlarged mesenteric or retroperitoneal lymph nodes. Vessels: Normal. Abdominal Wall: within normal limits. Bones: Within normal limits IMPRESSION: No evidence of acute intraabdominal or pelvic abnormality.
[2019-07-01] MEDS ORDERED: Morphine 4 MG/ML VIAL ONE (22:56)
[2019-07-01] MEDS ORDERED: Piperacillin/Tazobactam 4.5 GM VIAL ONE (22:56)
[2019-07-01 23:40] LABS: Bilirubin Negative (Negative); Blood, Urine Negative (Negative); Clarity Clear (Clear); Glucose, Urine (Dipstick) Normal (Negative); Leukocyte Negative Leu/uL (Negative); Nitrite Negative (Negative); Protein, Urine (Dipstick) Negative (Neg-Trace); Urobilinogen Normal mg/dL (Less than 2)
--- NOTE | 2019-07-02 00:20 | PDOC.EVN ---
Event Note - Event Note Event Note: [id number] H&P
[2019-07-02] MEDS ORDERED: ALPRAZolam 0.25 MG TAB ONE (01:28)
[2019-07-02] MEDS: ALPRAZolam 0.25 MG TAB PO SCH ×2 (01:37→10:59)
[2019-07-02] MEDS: Sodium Chloride 0.9% 1,000 ML IV SCH ×3 (01:38→18:15)
[2019-07-02] MEDS ORDERED: Enoxaparin Sodium 60 MG/0.6 ML SYRINGE SC SCH (01:45)
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
[2019-07-02] MEDS ORDERED: Acetaminophen 325 MG TAB ONE ×2 (03:58→09:10)
[2019-07-02] MEDS ORDERED: Enoxaparin Sodium 60 MG/0.6 ML SYRINGE ONE (03:58)
[2019-07-02] MEDS: Acetaminophen 325 MG TAB PO PRN ×4 (04:09→20:58)
[2019-07-02] MEDS ORDERED: Morphine 2 MG/ML SYRINGE ONE ×2 (04:36→09:09)
[2019-07-02] MEDS: Morphine 2 MG/ML SYRINGE SLOW IVP PRN ×2 (04:41→11:00)
[2019-07-02] MEDS ORDERED: Vancomycin HCl 1 GM in Sodium Chloride 0.9% 250 ML 250 ML IVPB SCH (06:00)
[2019-07-02] MEDS: Vancomycin HCl 1 GM in Premix Bag 1 BAG IVPB SCH ×3 (07:16→22:31)
[2019-07-02] MEDS ORDERED: Enoxaparin Sodium 80 MG/0.8 ML SYRINGE SC SCH (09:00)
[2019-07-02] MEDS ORDERED: Enoxaparin Sodium 80 MG/0.8 ML SYRINGE ONE (09:10)
[2019-07-02] MEDS: Cefepime 2 GM in Sodium Chloride 0.9% 100 ML IVPB SCH (13:00)
[2019-07-02] MEDS ORDERED: Vancomycin HCl 1 GM in Premix Bag 1 BAG IVPB SCH ×2 (14:00→23:59)
[2019-07-02 16:12] LABS: Legionella Urinary Ag Negative (Negative); Strep pneumo Urine Ag NEGATIVE (NEGATIVE)
[2019-07-02] MEDS ORDERED: Citalopram 20 MG TAB PO SCH (16:45)
[2019-07-02] MEDS: Ferrous Sulfate 325 MG TAB PO SCH (16:58)
[2019-07-02] MEDS: traMADol HCl 50 MG TAB PO PRN ×2 (17:00→23:48)
[2019-07-02] MEDS: ALPRAZolam 0.5 MG TAB PO PRN (17:11)
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
[2019-07-02] MEDS ORDERED: traMADol HCl 50 MG TAB PO SCH (18:00)
[2019-07-02] MEDS: Benzonatate 100 MG CAP PO PRN (18:15)
[2019-07-02] MEDS: Gabapentin 300 MG CAP PO SCH (20:52)
[2019-07-02] MEDS ORDERED: ALPRAZolam 0.5 MG TAB PO SCH (21:00)
[2019-07-02 21:34] LABS: Vancomycin, Trough 9.3 ug/mL
[2019-07-03] MEDS: Cefepime 2 GM in Sodium Chloride 0.9% 100 ML IVPB SCH ×3 (00:14→23:35)
[2019-07-03] MEDS: Vancomycin HCl 1 GM in Premix Bag 1 BAG IVPB SCH ×2 (04:32→09:02)
[2019-07-03] MEDS: Sodium Chloride 0.9% 1,000 ML IV SCH ×2 (07:11→12:12)
[2019-07-03] MEDS: Acetaminophen 325 MG TAB PO PRN ×4 (07:26→23:33)
[2019-07-03] MEDS ORDERED: Citalopram 20 MG TAB PO SCH (09:00)
[2019-07-03] MEDS: Rivaroxaban 10 MG TAB PO SCH (09:00)
[2019-07-03] MEDS: Gabapentin 300 MG CAP PO SCH ×2 (09:01→21:30)
[2019-07-03] MEDS: Ferrous Sulfate 325 MG TAB PO SCH ×2 (09:01→17:57)
[2019-07-03] MEDS: Benzonatate 100 MG CAP PO PRN ×2 (09:01→23:28)
[2019-07-03 10:45] LABS: #Eosinphils 0.1 thou/uL (0.0-0.7); #Lymphocytes 0.8 thou/uL (1.20-3.40); #Monocytes 0.2 thou/uL (0.11-0.59); #Neutrophils 17.9 thou/uL (1.40-6.50); %Eosinophils 0.6 % (0.0-10.0); %Lymphocytes 4.4 % (28.0-48.0); %Monocytes 1.3 % (0.0-4.0); %Neutrophils 93.8 % (31.0-61.0); Hemoglobin 12.1 g/dL (14.0-18.0); Mean Corpuscular HGB CONC 32.8 g/dL (32.0-36.0); Mean Corpuscular Hemoglobin 29.5 pg (25.0-35.0); Mean Corpuscular Volume 89.8 fL (78.0-98.0); Mean Platelet Volume 7.1 fL (7.4-10.4); Platelet Count 439 thou/uL (130-400); RBC Distribution Width 12.1 % (11.5-14.5); White Blood Cell (WBC) Count 19.1 thou/uL (4.8-10.8)
[2019-07-03 10:57] LABS: Anion Gap 11 mmol/L (10-20); BUN (Urea Nitrogen) 5 mg/dL (8.9-20.6); Calc. Creatinine Clearance 157 mL/min (70-130); Calcium 8.8 mg/dL (7.8-10.44); Carbon Dioxide 26 mmol/L (22-29); Chloride 100 mmol/L (98-107); Estimated GFR-MDRD Greater than 90; Glucose 124 mg/dL (70-105); Potassium 3.8 mmol/L (3.5-5.1); Sodium 133 mmol/L (136-145)
[2019-07-03] MEDS: traMADol HCl 50 MG TAB PO PRN ×3 (12:18→23:33)
[2019-07-03] MEDS: ALPRAZolam 0.5 MG TAB PO PRN ×2 (12:18→23:34)
[2019-07-03] MEDS ORDERED: Ondansetron PF 4 MG/2 ML Vial IVP PRN (12:24)
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
[2019-07-03] MEDS ORDERED: Pharmacy to Dose : CEFEPIME IVPB PRN (13:30)
[2019-07-03 14:47] VITALS: BMI 19.4
[2019-07-03] MEDS: Azithromycin 500 MG in Sodium Chloride 0.9% 250 ML 250 ML IVPB SCH (16:07)
[2019-07-04] MEDS: Gabapentin 300 MG CAP PO SCH ×2 (08:12→23:27)
[2019-07-04] MEDS: Benzonatate 100 MG CAP PO PRN ×3 (08:12→23:28)
[2019-07-04] MEDS: Acetaminophen 325 MG TAB PO PRN ×3 (08:12→23:41)
[2019-07-04] MEDS: Ferrous Sulfate 325 MG TAB PO SCH ×2 (08:12→19:22)
[2019-07-04] MEDS: Rivaroxaban 10 MG TAB PO SCH (08:13)
[2019-07-04] MEDS: Bacitracin 1 PK TOP SCH (08:13)
[2019-07-04] MEDS ORDERED: methylPREDNISolone Sod Succ 40 MG VIAL IVP SCH (09:00)
[2019-07-04] MEDS ORDERED: Vancomycin HCl 1.5 GM in Sodium Chloride 0.9% 250 ML 300 ML IVPB SCH (09:45)
[2019-07-04 10:38] LABS: Hemoglobin 13.1 g/dL (14.0-18.0); Mean Corpuscular HGB CONC 32.6 g/dL (32.0-36.0); Mean Corpuscular Hemoglobin 29.4 pg (25.0-35.0); Mean Platelet Volume 7.4 fL (7.4-10.4); Platelet Count 562 thou/uL (130-400); RBC Distribution Width 12.3 % (11.5-14.5); Red Blood Cell (RBC) Count 4.46 mill/uL (4.00-5.20); White Blood Cell (WBC) Count 22.9 thou/uL (4.8-10.8)
[2019-07-04 10:55] LABS: Anion Gap 15 mmol/L (10-20); BUN (Urea Nitrogen) 8 mg/dL (8.9-20.6); Calc. Creatinine Clearance 151 mL/min (70-130); Calcium 9.1 mg/dL (7.8-10.44); Carbon Dioxide 26 mmol/L (22-29); Chloride 99 mmol/L (98-107); Estimated GFR-MDRD Greater than 90; Glucose 105 mg/dL (70-105); Sodium 136 mmol/L (136-145)
[2019-07-04 11:07] LABS: Band 6 % (5-11); MDiff Complete? YES; Monocytes 1 % (0-4); Neutrophil 93 % (31-61); Platelet Morphology Comment Appears Increased; RBC Morphology Normal
--- NOTE | 2019-07-04 12:43 | PQF ---
DATE: 07-04-19 ATTN: DR. RENU AN Please exercise your independent, professional judgment in responding to the clarification form. Clinical indicators are provided on the bottom of this form for your review Please check appropriate box(s) to clarify if the following diagnosis has been ruled in or ruled out: SEPSIS [ ] Ruled in diagnosis [ ] Continue to treat [ x] Resolved [ ] Ruled out diagnosis [ ] Other diagnosis [ ] Unable to determine In addition, please specify: Present on Admission (POA): [ x ] Yes [ ] No [ ] Unable to determine For continuity of documentation, please document condition throughout progress notes and discharge summary. Thank You. CLINICAL INDICATORS - SIGNS / SYMPTOMS / LABS: ER DX 07-01-19: TEMP: 103.1, PULSE 118, O2 SAT: 95 ON RA, PT WAS DX WITH PNA AND HAS BEEN TAKING DOXYCYCLINE SINCE MON. ER DX 07-01-19: TEMP: 103.1, 103.1, 100.3, 101.8 PULSE: 118, 118, 106 RR: 26, 28, 26, 30, 25 BP: 97/50, 95/65, 98/65 ER DX 07-01-19: PNEUMONIA, SEPSIS WBC: 07-01-19: 14.6 07-03-19: 19.1 07-04-19: 22.9 H&P 07-04-19: SEPTIC WORKUP DONE IN THE ED. THE PATIENT WAS STARTED ON IV ANTIBIOTICS TO COVER FOR [id number] PNEUMONIA. SEPTIC WORKUP INCLUDING BLOOD CULTURES AND SPUTUM CULTURES. RISK FACTORS: H&P 07-04-19: SEPTIC WORKUP DONE IN THE ED. THE PATIENT WAS STARTED ON IV ANTIBIOTICS TO COVER FOR [id number] PNEUMONIA. SEPTIC WORKUP INCLUDING BLOOD CULTURES AND SPUTUM CULTURES. TREATMENTS MAR: 07-01-19: IVF, CEFEPIME IV, ZITHROMAX (This form is maintained as a part of the permanent medical record) 2014 [employer]. All Rights Reserved [email or web address] [email or web address] Office: [phone] DON
[2019-07-04] MEDS: Cefepime 2 GM in Sodium Chloride 0.9% 100 ML IVPB SCH ×2 (13:11→23:45)
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
[2019-07-04] MEDS: Azithromycin 500 MG in Sodium Chloride 0.9% 250 ML 250 ML IVPB SCH (14:46)
[2019-07-04] MEDS: Sodium Chloride 0.9% 1,000 ML IV SCH (14:48)
[2019-07-04] MEDS: traMADol HCl 50 MG TAB PO PRN ×2 (14:54→23:41)
[2019-07-04] MEDS: ALPRAZolam 0.5 MG TAB PO PRN (19:22)
[2019-07-04] MEDS: Vancomycin HCl 1.25 GM in Sodium Chloride 0.9% 250 ML 250 ML IVPB SCH (19:23)
[2019-07-05] MEDS: Vancomycin HCl 1.25 GM in Sodium Chloride 0.9% 250 ML 250 ML IVPB SCH ×2 (01:38→10:40)
[2019-07-05] MEDS: Sodium Chloride 0.9% 1,000 ML IV SCH (07:29)
[2019-07-05] MEDS ORDERED: predniSONE 20 MG TAB PO SCH (08:30)
[2019-07-05 09:28] LABS: Vancomycin, Trough 2.6 ug/mL
[2019-07-05] MEDS: Ferrous Sulfate 325 MG TAB PO SCH ×2 (09:56→17:55)
[2019-07-05] MEDS: Gabapentin 300 MG CAP PO SCH ×2 (09:56→20:38)
[2019-07-05] MEDS: Rivaroxaban 10 MG TAB PO SCH (09:57)
[2019-07-05] MEDS: ALPRAZolam 0.5 MG TAB PO PRN ×2 (09:59→20:39)
[2019-07-05] MEDS: Bacitracin 1 PK TOP SCH (10:01)
[2019-07-05] MEDS ORDERED: Vancomycin HCl 1 GM in Premix Bag 1 BAG IVPB SCH (11:30)
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
[2019-07-05] MEDS: Acetaminophen 325 MG TAB PO PRN (12:49)
[2019-07-05] MEDS: traMADol HCl 50 MG TAB PO PRN ×2 (12:49→20:39)
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
--- NOTE | 2019-07-05 14:23 | PRG ---
DATE OF SERVICE: 07/05/2019 SERVICE: Pulmonary Medicine. INTERVAL HISTORY: The patient is doing really well from respiratory standpoint. He is breathing comfortably. There is no fever overnight. He denies any current chest discomfort, nausea, vomiting, fevers, or chills. Otherwise, there has been no interval change to his condition. PHYSICAL EXAMINATION: VITAL SIGNS: Afebrile, pulse 64, blood pressure 126/82, respirations 16, and saturation 93% on room air. GENERAL: The patient is awake and alert, in no apparent distress. LUNGS: Wonderful air entry. Minimal crackles present. There are no rhonchi today. HEART: Normal rate and regular. ABDOMEN: Soft, nontender, and nondistended. Bowel sounds are positive. MUSCULOSKELETAL: No cyanosis or clubbing. No pitting in the bilateral lower extremities. NEUROLOGIC: Grossly nonfocal. LABORATORY DATA: WBC 22.9, hemoglobin 13.1, platelets 562,000. Basic metabolic profile is completely unremarkable. Urinalysis is negative. Urine strep and Legionella antigens are negative. All culture results remain negative to date. ASSESSMENT: 1. Acute hypoxic respiratory failure, resolved. 2. Healthcare-associated pneumonia. 3. Suspected vaping injury. 4. Obstructive sleep apnea, suspected and likely new since his injuries. DISCUSSION AND PLAN: The patient is doing fine from respiratory standpoint. He will continue the steroids and antibiotics. I would leave him on broad-spectrum antibiotics for a total duration of 5 days. On Monday, they can be discontinued and he can be discharged home provided that nothing else shows up on the cultures. I have counseled him extensively to abstain from any type of vaping, or administration of oil to or around the lungs. This does include nebulized essential oils and any oily substance applied to the head or body like Vicks. He will follow up in my clinic with a repeat chest x-ray in 4 to 6 weeks. If his respiratory difficulties get worse after he is discharged from the hospital, I asked for him to come right back to the emergency department. At this point, the patient has no further requirements for Pulmonary or Critical Care opinion, and I will sign off. Please call with additional questions or concerns through time. Job ID: [id number] [facility]
[2019-07-05] MEDS: Cefepime 2 GM in Sodium Chloride 0.9% 100 ML IVPB SCH (16:48)
[2019-07-05] MEDS: Azithromycin 500 MG in Sodium Chloride 0.9% 250 ML 250 ML IVPB SCH (17:53)
[2019-07-06] MEDS: Cefepime 2 GM in Sodium Chloride 0.9% 100 ML IVPB SCH ×2 (00:53→13:30)
[2019-07-06] MEDS: Ferrous Sulfate 325 MG TAB PO SCH ×2 (09:52→17:56)
[2019-07-06] MEDS: Rivaroxaban 10 MG TAB PO SCH (09:52)
[2019-07-06] MEDS: Gabapentin 300 MG CAP PO SCH ×2 (09:52→21:41)
[2019-07-06] MEDS: predniSONE 20 MG TAB PO SCH (09:52)
[2019-07-06] MEDS: Bacitracin 1 PK TOP SCH (09:52)
[2019-07-06] MEDS: traMADol HCl 50 MG TAB PO PRN ×2 (09:58→21:41)
[2019-07-06] MEDS: ALPRAZolam 0.5 MG TAB PO PRN ×2 (09:58→18:01)
[2019-07-06] MEDS: Acetaminophen 325 MG TAB PO PRN (09:58)
[2019-07-06 09:59] LABS: Hemoglobin 12.5 g/dL (14.0-18.0); Mean Corpuscular HGB CONC 33.1 g/dL (32.0-36.0); Mean Corpuscular Hemoglobin 29.6 pg (25.0-35.0); Mean Corpuscular Volume 89.2 fL (78.0-98.0); Mean Platelet Volume 6.8 fL (7.4-10.4); Platelet Count 725 thou/uL (130-400); RBC Distribution Width 12.3 % (11.5-14.5); Red Blood Cell (RBC) Count 4.21 mill/uL (4.00-5.20); White Blood Cell (WBC) Count 23.5 thou/uL (4.8-10.8)
[2019-07-06 10:17] LABS: Vancomycin, Trough 32.1 ug/mL
[2019-07-06 10:34] LABS: Band 4 % (5-11); Lymphocytes 9 % (28-48); MDiff Complete? YES; Monocytes 1 % (0-4); Neutrophil 86 % (31-61); Platelet Morphology Comment Appears Increased
--- NOTE | 2019-07-06 14:26 | PDOC.HOSPP ---
- Subjective Encounter Date: 07/06/19 Encounter Time: 14:23 Subjective: Doing very well. Feels like he turned the corner a couple of days ago. - Objective Vital Signs & Weight: Vital Signs (12 hours) Temp Pulse Resp BP Pulse Ox 07/06/19 08:43 98.2 F 70 16 116/73 95 Weight Admit Weight 128 lb Weight 128 lb I&O: 07/05/19 07/06/19 07/07/19 06:59 06:59 06:59 Intake Total 2850 Output Total 1500 1150 600 Balance 1350 -1150 -600 Result Diagrams: 07/06/19 09:31 07/04/19 10:02 Hospitalist ROS - Medication Medications: Active Medications Generic Name Dose Route Start Last Admin Trade Name Freq PRN Reason Stop Dose Admin Acetaminophen 650 mg 07/01/19 22:38 07/06/19 09:58 Tylenol PO 650 mg Q4H PRN Administration Headache/Fever/Mild Pain (1-3) Alprazolam 0.5 mg 07/02/19 16:26 07/06/19 09:58 Xanax PO 0.5 mg TIDPRN PRN Administration Anxiety Bacitracin 1 pk 07/04/19 09:00 07/06/19 09:52 Bacitracin TOP 1 pk DAILY GRACE Administration Ferrous Sulfate 325 mg 07/02/19 17:00 07/06/19 09:52 Feosol PO 325 mg BID-WM GRACE Administration Gabapentin 300 mg 07/02/19 21:00 07/06/19 09:52 Neurontin PO 300 mg BID GRACE Administration Cefepime HCl 2 gm/ Sodium 100 mls @ 200 mls/hr 07/02/19 12:00 07/06/19 13:30 Chloride IVPB 100 mls 1200,2359 GRACE Administration Azithromycin 500 mg/ Sodium 250 mls @ 250 mls/hr 07/03/19 14:00 07/05/19 17: 53 Chloride IVPB 250 mls 1400 GRACE Administration Morphine Sulfate 2 mg 07/02/19 04:20 07/02/19 11:00 Morphine SLOW IVP 2 mg Q3H PRN Administration Pain Ondansetron HCl 4 mg 07/03/19 12:24 07/03/19 13:16 Zofran IVP 4 mg Q6H PRN Administration Nausea/Vomiting Prednisone 40 mg 07/06/19 08:00 07/06/19 09:52 Prednisone PO 07/08/19 08:01 40 mg QAM-WM GRACE Administration Rivaroxaban 10 mg 07/03/19 09:00 07/06/19 09:52 Xarelto PO 10 mg DAILY GRACE Administration Tramadol HCl 50 mg 07/02/19 16:26 07/06/19 09:58 Ultram PO 50 mg Q6H PRN Administration Pain 4-6 - Exam General Appearance: NAD, awake alert ENT - other findings: External fixator mandible. Heart: RRR, no murmur, no gallops, no rubs, normal peripheral pulses Respiratory: CTAB, no wheezes, no rales, no ronchi, normal chest expansion, no tachypnea, normal percussion Gastrointestinal: soft, non-tender, non-distended, normal bowel sounds, no palpable masses, no hepatomegaly, no splenomegaly, no bruit Psychiatric: normal affect, normal behavior, A&O x 3
[2019-07-06] MEDS: Azithromycin 500 MG in Sodium Chloride 0.9% 250 ML 250 ML IVPB SCH (14:55)
[2019-07-07] MEDS: Cefepime 2 GM in Sodium Chloride 0.9% 100 ML IVPB SCH ×2 (00:35→14:09)
[2019-07-07] MEDS: ALPRAZolam 0.5 MG TAB PO PRN ×2 (00:45→10:41)
[2019-07-07 01:37] LABS: Vancomycin, Random 2.9 ug/mL (See Comment)
[2019-07-07] MEDS ORDERED: Vancomycin HCl 1 GM in Premix Bag 1 BAG IVPB SCH ×2 (02:00→08:00)
[2019-07-07 07:40] VITALS: BP 113/77; TEMP 97.8
[2019-07-07] MEDS: Ferrous Sulfate 325 MG TAB PO SCH (10:37)
[2019-07-07] MEDS: predniSONE 20 MG TAB PO SCH (10:37)
[2019-07-07] MEDS: Gabapentin 300 MG CAP PO SCH (10:37)
[2019-07-07] MEDS: Bacitracin 1 PK TOP SCH (10:38)
[2019-07-07] MEDS: Acetaminophen 325 MG TAB PO PRN (10:40)
[2019-07-07] MEDS: traMADol HCl 50 MG TAB PO PRN (10:40)
[2019-07-07] MEDS: Rivaroxaban 10 MG TAB PO SCH (10:41)
[2019-07-07] MEDS ORDERED: Diabetic Tussin 200 MG/10 ML UDCUP PO PRN (13:18)
[2019-07-07] MEDS ORDERED: Azithromycin 250 MG TAB PO SCH (14:00)
--- NOTE | 2019-07-07 14:10 | PDOC.HOSPP ---
- Subjective Subjective: Feels very well. Minimal cough. Has lost his IV again and has had several attempts at replacing it without success. - Objective Vital Signs & Weight: Vital Signs (12 hours) Temp Pulse Resp BP Pulse Ox 07/07/19 07:36 97.8 F 69 18 113/77 94 L Weight Admit Weight 128 lb Weight 128 lb I&O: 07/06/19 07/07/19 07/08/19 06:59 06:59 06:59 Intake Total 912 Output Total 0910 5755 Balance -1150 -497 Result Diagrams: 07/06/19 09:31 07/04/19 10:02 Hospitalist ROS - Medication Medications: Active Medications Generic Name Dose Route Start Last Admin Trade Name Freq PRN Reason Stop Dose Admin Acetaminophen 650 mg 07/01/19 22:38 07/07/19 10:40 Tylenol PO 650 mg Q4H PRN Administration Headache/Fever/Mild Pain (1-3) Alprazolam 0.5 mg 07/02/19 16:26 07/07/19 10:41 Xanax PO 0.5 mg TIDPRN PRN Administration Anxiety Bacitracin 1 pk 07/04/19 09:00 07/07/19 10:38 Bacitracin TOP 1 pk DAILY GRACE Administration Ferrous Sulfate 325 mg 07/02/19 17:00 07/07/19 10:37 Feosol PO 325 mg BID-WM GRACE Administration Gabapentin 300 mg 07/02/19 21:00 07/07/19 10:37 Neurontin PO 300 mg BID GRACE Administration Morphine Sulfate 2 mg 07/02/19 04:20 07/02/19 11:00 Morphine SLOW IVP 2 mg Q3H PRN Administration Pain Ondansetron HCl 4 mg 07/03/19 12:24 07/03/19 13:16 Zofran IVP 4 mg Q6H PRN Administration Nausea/Vomiting Prednisone 40 mg 07/06/19 08:00 07/07/19 10:37 Prednisone PO 07/08/19 08:01 40 mg QAM-WM GRACE Administration Rivaroxaban 10 mg 07/03/19 09:00 07/07/19 10:41 Xarelto PO 10 mg DAILY GRACE Administration Sodium Chloride 10 ml 07/07/19 09:00 07/07/19 08:14 Flush - Normal Saline IVF 10 ml Q12HR GRACE Administration Tramadol HCl 50 mg 07/02/19 16:26 07/07/19 10:40 Ultram PO 50 mg Q6H PRN Administration Pain 4-6 - Exam General Appearance: NAD, awake alert General - other findings: Generalized muscle atrophy. ENT - other findings: External mandible fixator. Heart: RRR, no murmur, no gallops, no rubs, normal peripheral pulses Respiratory: CTAB, no wheezes, no rales, no ronchi, normal chest expansion, no tachypnea, normal percussion Gastrointestinal: soft, non-tender, non-distended, normal bowel sounds Extremities: no cyanosis, no clubbing, no edema Skin: normal turgor Musculoskeletal: generalized weakness Psychiatric: normal affect, normal behavior, A&O x 3 Hosp A/P (1) HCAP (healthcare-associated pneumonia) Code(s): J18.9 - PNEUMONIA, UNSPECIFIED ORGANISM Status: Acute (2) Acute respiratory failure with hypoxia Code(s): J96.01 - ACUTE RESPIRATORY FAILURE WITH HYPOXIA Status: Resolved (3) Depression Code(s): F32.9 - MAJOR DEPRESSIVE DISORDER, SINGLE EPISODE, UNSPECIFIED Status : Acute - Plan He has had five days of the Vanc and Cefepime as recommended by Pulm. With his IV problems, will go ahead and DC them now and change to PO abx. Continue Steroids. Anticipate he will be able to discharge tomorrow. He has not demonstrated any outward signs or reported any symptoms related to depression. His girlfriend has been by his side all weekend and they seem to be doing well. He says he has everything he needs for going home.
--- NOTE | 2019-07-07 17:28 | DIS ---
DATE OF ADMISSION: 07/01/2019 DATE OF DISCHARGE: 07/07/2019 DISCHARGE DIAGNOSES: 1. Healthcare-acquired pneumonia. 2. Recent severe trauma, requiring prolonged hospitalization. 3. 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 4. History of cervical stenosis. HISTORY: This patient is a 19-year-old male who had recently in April and May been in the emergency department following a significant traumatic injury, followed by Dr. Alvarado and Dr. Abernathy. He had been discharged to home. Apparently, developed some cough and fever, was diagnosed with pneumonia and started on p.o. antibiotics with doxycycline. He subsequently had a shot of Rocephin, then was on cefdinir and Z-Bud and stopped the doxycycline, but ultimately presented to the emergency department. He had cultures obtained and initial imaging including a chest x-ray which was negative for acute findings. Chest CT showed a multifocal pneumonia. CT of the abdomen and pelvis was negative. HOSPITAL COURSE: The patient was admitted to the hospital with what appeared to be a multifocal pneumonia, felt to be due to prolonged hospitalization. He had a white count of 14.6, and he was started on broad-spectrum antibiotics with vancomycin, cefepime, and azithromycin. The patient continued to have fever for several days and was finally seen in consultation by Pulmonary. Given his history of the vaping, there was a strong concern that the patient may have suffered vaping-related lung injury as well. He did ultimately defervesce all sputum and blood cultures remain negative. Symptomatically, he felt substantially better after a course of steroids and antibiotics. He received a full 5-day course of broad-spectrum antibiotics and ultimately, he was felt to be stable for discharge to home. He has some chronic generalized debility from his prior trauma, but felt so he had everything he needed at home in order to be appropriately cared for there. With that, he was felt to be stable for discharge. For physical examination, please see the progress note dated the day of discharge. He will be discharged to home. He will have a regular diet and activity level. His home medications will include: 1. Zofran p.r.n. 2. Neurontin 300 b.i.d. 3. Feosol 325 b.i.d. 4. Senokot one p.o. b.i.d. 5. Tramadol 50 mg q.6 hours p.r.n. 6. Xanax 0.5 mg t.i.d. 7. Xarelto 10 mg daily. 8. Prednisone 40 mg daily for one additional day. FOLLOWUP: He is to follow up with Dr. Amina Mcnulty, and he should follow up with Dr. Johnson in 4 weeks to have a repeat chest x-ray. He was encouraged to return to the hospital immediately should he develop any further fever or significant respiratory issues. Total time in discharge activity was 33 minutes. Job ID: [id number]
[2019-07-08] MEDS ORDERED: Azithromycin 250 MG TAB PO SCH (09:00)
== END 2019-07-07 16:30 | disposition home or self-care (01) | DRG 871 ==
LOC: ERS 20:55 → ERHOLD 22:08 → ONC 22:08
PROVIDERS: ADMIT Internal Medicine; ATTEND Internal Medicine
DX: A41.9 Sepsis, unspecified organism (principal); J18.9 Pneumonia, unspecified organism; J96.01 Acute respiratory failure with hypoxia; E87.1 Hypo-osmolality and hyponatremia; S27.399A Other injuries of lung, unspecified, initial encounter; M48.02 Spinal stenosis, cervical region; F41.9 Anxiety disorder, unspecified; F17.290 Nicotine dependence, other tobacco product, uncomplicated; E86.0 Dehydration; Y95 Nosocomial condition; F32.9 Major depressive disorder, single episode, unspecified; T79.9XXA Unspecified early complication of trauma, initial encounter; G47.33 Obstructive sleep apnea (adult) (pediatric); X58.XXXA Exposure to other specified factors, initial encounter; Z79.899 Other long term (current) drug therapy
CPT/HCPCS: 36415; 71045; 71250; 74177; 80048; 80053; 80202; 81003; 83605; 83735; 85025; 87040; 87070; 87086; 87205; 87449; 87899; 93005; 96361; 96365; 96366; 96367; 96375; J0456; J0692; J1650; J1956; J2270; J2405; J2543; J2920; J3370; J3490; J7050; J7512; Q9966

== ENCOUNTER 2019-07-23 06:07 | Day surgery (SDC) | payer BC ==
[2019-07-22 15:55] VITALS: BMI 19.0
[2019-07-23] MEDS ORDERED: Chlorhexidine Gluconate 15 ML UDCUP SSP ONE (06:26)
[2019-07-23] MEDS ORDERED: Lidocaine 1% w/Epinephrine 1:100K 20 ML VIAL ONE (06:26)
[2019-07-23] MEDS ORDERED: Midazolam HCl 2 mg/2 ml Vial ONE (07:06)
[2019-07-23] MEDS ORDERED: HYDROmorphone 2 MG/ML VIAL ONE (07:19)
[2019-07-23] MEDS ORDERED: Fentanyl 100 MCG/2 ML VIAL ONE (07:19)
[2019-07-23] MEDS ORDERED: Oxymetazoline HCl 0.05% ( 15 ML ) ONE (07:19)
[2019-07-23] MEDS ORDERED: Dexamethasone 20 MG/5 ML VIAL ONE (11:43)
[2019-07-23] MEDS ORDERED: Ketorolac Tromethamine 30 MG/ML VIAL ONE (11:43)
[2019-07-23] MEDS ORDERED: Lidocaine 1% PF 5 ML VIAL ONE (11:43)
[2019-07-23] MEDS ORDERED: Rocuronium Bromide 10 MG/ML (10ML VIAL) ONE (11:43)
[2019-07-23] MEDS ORDERED: PROPOFOL 200 MG/20 ML VIAL ONE (11:43)
[2019-07-23] MEDS ORDERED: Ondansetron PF 4 MG/2 ML Vial ONE (11:43)
[2019-07-23] MEDS ORDERED: Glycopyrrolate 0.2 MG/ML 5 ML SYRINGE ONE (11:43)
--- NOTE | 2019-07-24 09:03 | OP ---
DATE OF PROCEDURE: 07/23/2019 PREOPERATIVE DIAGNOSIS: Comminuted mandible fracture. POSTOPERATIVE DIAGNOSIS: Comminuted mandible fracture. PROCEDURES PERFORMED: 1. Removal of maxillary mandibular arch bars and wires. 2. Removal of mandibular external fixator and external fixator pins. COMPLICATIONS: None. SPECIMENS: None. DRAINS: None. DISPOSITION: The patient is stable, extubated, and transferred to postop recovery unit. ESTIMATED BLOOD LOSS: Less than 10 mL. ANESTHESIA: General endotracheal anesthesia through oral tube. FOLLOWUP: The patient is to follow up in my office in 1 week. Continue soft diet. Bacitracin ointment to external fixator pin hole areas. BRIEF PATIENT HISTORY AND PROCEDURE IN DETAIL: This is a 19-year-old male, status post closed reduction of mandible fractures with arch bars, wires, and external fixator placement. The patient is now 3 months out and stable, so here for hardware removal. Local anesthesia was infiltrated with 1% lidocaine 1:100,000 epinephrine in the maxilla and mandible. Arch bars were removed, and interdental wires were removed with electronic wirer and wire cutters. Throat pack was placed prior to this. External fixator pins were then removed after removing the external fixator bar. This was done using a T-bar handle. The patient tolerated the procedure well. Follow up in 1 week. Job ID: [id number]
--- NOTE | 2019-07-24 13:55 | OP ---
DATE OF PROCEDURE: 07/23/2019 PREOPERATIVE DIAGNOSIS: Comminuted mandible fracture. POSTOPERATIVE DIAGNOSIS: Comminuted mandible fracture. PROCEDURES PERFORMED: 1. Removal of maxillary mandibular arch bars and wires. 2. Removal of mandibular external fixator and external fixator pins. COMPLICATIONS: None. SPECIMENS: None. DRAINS: None. DISPOSITION: The patient is stable, extubated, and transferred to postop recovery unit. ESTIMATED BLOOD LOSS: Less than 10 mL. ANESTHESIA: General endotracheal anesthesia through oral tube. FOLLOWUP: The patient is to follow up in my office in 1 week. Continue soft diet. Bacitracin ointment to external fixator pin hole areas. BRIEF PATIENT HISTORY AND PROCEDURE IN DETAIL: This is a 19-year-old male, status post closed reduction of mandible fractures with arch bars, wires, and external fixator placement. The patient is now 3 months out and stable, so here for hardware removal. Local anesthesia was infiltrated with 1% lidocaine 1:100,000 epinephrine in the maxilla and mandible. Arch bars were removed, and interdental wires were removed with wire hanger and wire cutters. Throat pack was placed prior to this. External fixator pins were then removed after removing the external fixator bar. This was done using a T-bar handle. The patient tolerated the procedure well. Follow up in 1 week. Job ID: [id number]
== END 2019-07-23 10:00 | disposition home or self-care (01) ==
LOC: SDC 06:07
PROVIDERS: ATTEND Dentist Oral and Maxillofacial Surgery
PROC: 0NPW04Z Removal of Internal Fixation Device from Facial Bone, Open Approach (ICD-10-PCS; principal; 2019-07-23)
DX: S02.652D Fracture of angle of left mandible, subsequent encounter for fracture with routine healing (principal); Z79.899 Other long term (current) drug therapy
CPT/HCPCS: J1100; J1170; J1885; J2001; J2250; J2405; J2704; J3010

== ENCOUNTER 2019-08-21 14:57 | Outpatient (CLI) | payer BC ==
--- NOTE | 2019-08-21 15:24 | RAD ---
RADIOGRAPH CHEST 2 VIEWS: 08/21/2019 3:04 p.m. HISTORY: A 19-year-old male with multifocal bilateral pneumonia. Followup. COMPARISON: One view study of 07/01/2019. FINDINGS: The prior plain radiograph of 07/01/2019 showed what appeared to be prominent interstitial markings a nd did not show the somewhat severe degree of bilateral multifocal infiltrates that were better demon strated on the chest CT of 07/01/2019. On the current chest radiograph most of those infiltrates have resolved. On the current frontal view there is an apparently new, small, mild, focal, ill defined, f aint pulmonary density at the left mid lung zone, near the left hilar shadow. The cardiomediastinal s ilhouette is normal. No pleural effusion of pneumothorax. IMPRESSION: 1. Significant interval improvement or resolution of the previously demonstrated multifocal bilateral pneumonia. 2. New small, faint left mid lung zone pulmonary density, nonspecific. This could either represent a new small infiltrate, scar or atelectasis. JN [] POS: TPC
== END 2019-08-21 14:58 | disposition home or self-care (01) ==
LOC: SCSRAD 14:57
PROVIDERS: ATTEND Family Medicine
DX: J18.9 Pneumonia, unspecified organism (principal); J98.4 Other disorders of lung
CPT/HCPCS: 71046

== ENCOUNTER 2020-03-31 07:20 | Outpatient (CLI) | payer BC, OTHER ==
[2020-04-01 12:45] LABS: SARS-CoV-2 MS2 Positive; SARS-CoV-2 N Gene Negative; SARS-CoV-2 S Gene Negative; SARS-CoV-2 orf1ab Negative
== END 2020-03-31 07:21 | disposition home or self-care (01) ==
LOC: LABBT 07:20
PROVIDERS: ATTEND Orthopaedic Surgery
DX: Z01.812 Encounter for preprocedural laboratory examination (principal); Z11.59 Encounter for screening for other viral diseases; T84.84XA Pain due to internal orthopedic prosthetic devices, implants and grafts, initial encounter
CPT/HCPCS: 87635; U0003

== ENCOUNTER 2020-04-03 11:32 | Day surgery (SDC) | payer BC ==
[2020-03-30 11:22] VITALS: BMI 20.5
[~2020-04-03 11:32] MED LIST changes: +EPHEDRINE 25 MG/5 ML SYRINGE ONE; -ISOVUE-370 76%-LOCM 1 ML ONE; +Lidocaine 1% PF 5 ML VIAL ONE; +PROPOFOL 200 MG/20 ML VIAL ONE
[2020-04-03] MEDS ORDERED: Fentanyl 100 MCG/2 ML VIAL ONE ×2 (12:59→14:44)
[2020-04-03] MEDS ORDERED: Bupivacaine PF 0.5% 30 ML VIAL ONE (13:50)
[2020-04-03] MEDS ORDERED: Meperidine HCl/PF 25 MG/ML VIAL ONE (14:03)
[2020-04-03] MEDS ORDERED: Midazolam HCl 2 mg/2 ml Vial ONE (14:11)
--- NOTE | 2020-04-03 15:13 | OP ---
DATE OF PROCEDURE: 04/03/2020 PREOPERATIVE DIAGNOSIS: Painful hardware, right distal femur. POSTOPERATIVE DIAGNOSES: Painful hardware, right distal femur. PROCEDURE PERFORMED: Hardware removal, deep distal femur. EMBOSSING PRESS OPERATOR: None. ANESTHESIA: Dr. Acuña. The patient received an LMA with 7 mL of 0.5% Marcaine plain. ESTIMATED BLOOD LOSS: Less than 20 mL. TOURNIQUET TIME: None. ANTIBIOTICS: Ancef 2 g. EXPLANT: 5.0 screw. COMPLICATION: None. HISTORY OF PRESENT ILLNESS: Mr. Casey is 19-year-old male, status post jump off a bridge, sustained a distal femur fracture, intercondylar split, had a screw that was penetrating medially from the distal 5.0 locking screws. This anterior aspect of the screw which was the most prominent screw. I discussed with him that since the tissue is popping over that, I could remove that screw. I discussed I would not be removing all of the screws and that one or two may be prominent afterwards. I discussed risks and benefits of surgery, pain, scar, bleeding, infection, damage to vital structures, decreased range of motion and strength, continued pain despite surgical intervention, loss of life or limb. The patient understood the risks and benefits and elected to proceed. DESCRIPTION OF PROCEDURE: Time-out was performed designating the patient's right lower extremity as the operative site based on site, consent, and marking. After time-out, the patient's right lower extremity was prepped and draped in sterile fashion. I looked under fluoroscopic guidance and localized the screw. I then made a skin incision down through skin, controlled bleeding. I got into the patient' s portion of the vastus, through kind of his IT band, through into his vastus. There was scar plane. There was some bleeding, which we again controlled. We used an elevator to get on the implant and dissect and expose the patient's screw. I backed out the most prominent screw. I removed that. After this, you could still see and feel the prominence, but this was the one that was bothering the most, which had been removed. Therefore, we washed. We closed with 0, 2-0 Vicryl and 3-0 nylon , injected with 7 mL of 0.5 % Marcaine subcu, placed a soft tissue dressing. The patient will be weightbearing as tolerated. Follow up with me in the clinic in 10 to 14 days. Rodolfo ID: [id number] MTDD
[2020-04-03] MEDS ORDERED: HYDROcodone/Acetaminophen 5/325 mg Tablet ONE (15:31)
--- NOTE | 2020-04-03 20:14 | RAD ---
FRONTAL VIEW RIGHT KNEE: 04/03/20 PROVIDED CLINICAL HISTORY: Spot fluoroscopic images of the right knee were obtained by Dr. Abernathy during the course of hardware removal. IMPRESSION: As above. POS: EMMETT
== END 2020-04-03 15:58 | disposition home or self-care (01) ==
LOC: SDC 11:32
PROVIDERS: ATTEND Orthopaedic Surgery
PROC: 0QPB04Z Removal of Internal Fixation Device from Right Lower Femur, Open Approach (ICD-10-PCS; principal; 2020-04-03)
DX: T84.84XA Pain due to internal orthopedic prosthetic devices, implants and grafts, initial encounter (principal); F41.9 Anxiety disorder, unspecified; F32.9 Major depressive disorder, single episode, unspecified; G89.29 Other chronic pain; M54.9 Dorsalgia, unspecified; F17.210 Nicotine dependence, cigarettes, uncomplicated; Z91.5 Personal history of self-harm; Z79.899 Other long term (current) drug therapy
CPT/HCPCS: 76000; J2001; J2175; J2250; J2704; J3010; S0020

== ENCOUNTER 2021-03-28 14:29 | Emergency (ER) | payer BC ==
[2021-03-28] MEDS ORDERED: Acetaminophen 500 MG TAB ONE (14:59)
[2021-03-28 15:59] LABS: SARS-CoV-2 NAA Rapid Test Not Detected (NotDetected)
[2021-03-28] MEDS ORDERED: Dexamethasone 4 mg/ml Vial ONE (17:28)
== END 2021-03-28 16:50 | disposition home or self-care (01) ==
LOC: ERS 14:29
DX: J02.0 Streptococcal pharyngitis (principal); Z20.822 Contact with and (suspected) exposure to COVID-19
CPT/HCPCS: 0240U; 87430; 99283; J1100

== ENCOUNTER 2021-06-06 23:28 | Emergency (ER) | payer BC ==
[2021-06-07] MEDS ORDERED: Lidocaine 1% (PF) 30 ML VIAL ONE (02:58)
== END 2021-06-07 04:24 | disposition home or self-care (01) ==
LOC: ERS 23:28
DX: S61.211A Laceration without foreign body of left index finger without damage to nail, initial encounter (principal); M48.02 Spinal stenosis, cervical region; Z87.01 Personal history of pneumonia (recurrent); Z87.09 Personal history of other diseases of the respiratory system; Z79.899 Other long term (current) drug therapy; Z79.891 Long term (current) use of opiate analgesic; W26.0XXA Contact with knife, initial encounter
CPT/HCPCS: 12001; J2001

== ENCOUNTER 2022-12-13 12:08 | Outpatient (CLI) | payer BC ==
[2022-12-13 12:46] LABS: #Eosinphils 0.2 10x3/uL (0.0-0.5); #Monocytes 0.6 10x3/uL (0.0-1.1); #Neutrophils 4.8 10x3/uL (1.5-8.4); %Basophils 0.4 % (0.0-2.0); %Eosinophils 2.3 % (0.0-6.0); %Lymphocytes 25.8 % (18.0-47.0); %Monocytes 7.4 % (0.0-10.0); %Neutrophils 63.8 % (40.0-75.0); Hemoglobin 14.5 g/dL (13.5-17.5); Mean Corpuscular HGB CONC 33.3 g/dL (32.0-36.0); Mean Corpuscular Hemoglobin 30.7 pg (27.0-33.0); Mean Platelet Volume 11.1 fl (7.4-10.4); Platelet Count 220 10x3/uL (150-450); RBC Distribution Width 11.9 % (11.5-14.5); Red Blood Cell (RBC) Count 4.73 10x6/uL (4.32-5.72); White Blood Cell (WBC) Count 7.5 10x3/uL (3.5-10.5)
== END 2022-12-13 12:09 | disposition home or self-care (01) ==
LOC: LABBT 12:08
PROVIDERS: ATTEND Orthopaedic Surgery
DX: Z01.812 Encounter for preprocedural laboratory examination (principal); T84.84XA Pain due to internal orthopedic prosthetic devices, implants and grafts, initial encounter
CPT/HCPCS: 85025

== ENCOUNTER 2022-12-15 07:03 | Day surgery (SDC) | payer BC ==
[2022-12-13 11:47] VITALS: BMI 22.0
[2022-12-15] MEDS ORDERED: Midazolam HCl 2 mg/2 ml Vial ONE (08:26)
[2022-12-15] MEDS ORDERED: fentaNYL PF 100 MCG/2 ML SYRINGE ONE (08:26)
[2022-12-15] MEDS ORDERED: CEFAZOLIN 2 GM VIAL ONE (09:24)
[2022-12-15] MEDS ORDERED: Sodium Chloride 0.9% 100 ML ONE (09:24)
[2022-12-15] MEDS ORDERED: PROPOFOL 200 MG/20 ML VIAL ONE (09:35)
[2022-12-15] MEDS ORDERED: Dexamethasone 20 MG/5 ML VIAL ONE (09:35)
[2022-12-15] MEDS ORDERED: Lidocaine 1% PF 5 ML VIAL ONE (09:35)
[2022-12-15] MEDS ORDERED: Ondansetron PF 4 MG/2 ML Vial ONE (09:35)
[2022-12-15] MEDS ORDERED: Bupivacaine/Epinephrine 0.25% 30 ML VIAL ONE (10:08)
[2022-12-15] MEDS ORDERED: Meperidine HCl/PF 25 MG/ML VIAL ONE (10:28)
[2022-12-15] MEDS ORDERED: Fentanyl 100 MCG/2 ML VIAL ONE (10:42)
[2022-12-15] MEDS ORDERED: HYDROcodone/Acetaminophen 5/325 mg Tablet ONE (11:57)
== END 2022-12-15 12:12 | disposition home or self-care (01) ==
LOC: SDC 07:03
PROVIDERS: ATTEND Orthopaedic Surgery
PROC: 0QPB04Z Removal of Internal Fixation Device from Right Lower Femur, Open Approach (ICD-10-PCS; principal; 2022-12-15)
DX: T84.84XA Pain due to internal orthopedic prosthetic devices, implants and grafts, initial encounter (principal); G89.29 Other chronic pain; M54.9 Dorsalgia, unspecified; F17.210 Nicotine dependence, cigarettes, uncomplicated; F17.290 Nicotine dependence, other tobacco product, uncomplicated; Z91.51 Personal history of suicidal behavior; Z79.899 Other long term (current) drug therapy; Y79.3 Surgical instruments, materials and orthopedic devices (including sutures) associated with adverse incidents
CPT/HCPCS: J1100; J2175; J2250; J2405; J2704; J3010; J3490